=== PATIENT | male | born 1950 | race Caucasian/White ===

== ENCOUNTER 2022-04-11 10:50 | Outpatient (CLI) | payer OTHER, SELFPAY ==
--- NOTE | 2022-04-11 09:30 | DI.RAD_ITS ---
Exam(s) XR HAND RT COMPLETE EXAM: XR HAND RT COMPLETE CLINICAL HISTORY: right thumb pain. TECHNIQUE: 2D digital imaging was performed. COMPARISON: No exams were available for comparison FINDINGS: 3 views No evidence of fracture dislocation. No significant soft tissue densities. No osseous lesions nor e rosions. No radiopaque foreign body. IMPRESSION: No significant acute osseous findings. DATA REPOSITORY: RADIATION DOSE DELIVERED:
== END 2022-04-11 10:51 | disposition home or self-care (01) ==
LOC: DIORS 10:53
PROVIDERS: PCP Nurse Practitioner Acute Care; Referring Provider Nurse Practitioner Acute Care; Visit Provider Physician Assistant
DX: M79.644 Pain in right finger(s) (principal)
CPT/HCPCS: 73130

== ENCOUNTER 2023-01-28 08:19 | Day surgery (SDC) | payer OTHER, SELFPAY ==
[2023-01-28 08:31] VITALS: BP 126/89; PULSE 85; RESP 16; TEMP 36.1; O2SAT 97
[2023-01-28] MEDS: Lactated Ringers 1,000 ML 80 ML IV (09:09)
--- NOTE | 2023-01-28 09:18 | W.ANESPRE ---
General Info Date of Service Date Performed: 01/28/23 Height: 5 ft 11 in Weight: 104.2 kg Body Mass Index (BMI): 32.0 Surgical Procedure: Operation Date: 01/28/23 10:05 Proposed Procedure Side Surgeon risa Sung MD Meds Allergies and Home Medications Allergies Allergy/AdvReac Type Severity Reaction Status Date / Time niacin Allergy Unknown Verified 01/28/23 08:47 shrimp Allergy Anaphylaxsi Verified 01/28/23 08:47 s Home Medication Medication Instructions Recorded atenolol 25 mg tablet 25 mg PO DAILY 11/06/18 atorvastatin 40 mg tablet 40 mg PO DAILY 11/06/18 cholecalciferol (vitamin D3) 25 1,000 unit PO DAILY 11/06/18 mcg (1,000 unit) capsule epinephrine 0.3 mg/0.3 mL 11/06/18 injection, auto-injector (EpiPen) glipizide 10 mg tablet 10 mg PO DAILY 11/06/18 lisinopril 40 mg tablet 40 mg PO DAILY 11/06/18 omega 9-api-liw-fish oil 1,000 mg 1 cap PO DAILY 11/06/18 (120 mg-180 mg) capsule (Fish Oil) albuterol sulfate 90 mcg/actuation 2 inh inhalation Q6H PRN 02/06/22 breath activated powder inhaler cyanocobalamin (vitamin B-12) 1,000 mcg PO DAILY 02/06/22 1,000 mcg tablet empagliflozin 25 mg tablet 25 mg PO DAILY 02/06/22 famotidine 20 mg tablet 20 mg PO BID 02/06/22 metformin 1,000 mg tablet 1,000 mg PO BID 02/06/22 bisacodyl 5 mg tablet,delayed 5 mg PO ONCE #4 tabs 01/23/23 release (Dulcolax (bisacodyl)) clotrimazole 1 % topical cream 1 applic topical BID 01/23/23 polyethylene glycol 3350 17 17 g PO ONCE #238 grams 01/23/23 gram/dose oral powder sildenafil 50 mg tablet 50 mg PO DAILY PRN 01/23/23 Current Visit Medications: Current Medications Generic Name Dose Route Start Last Admin Trade Name Freq PRN Reason Stop Dose Admin Ringer's Solution 1,000 mls @ 80 mls/hr 01/28/23 06:00 12/05/23 09:09 IV 01/28/23 23:59 80 mls/hr INFUSION DEYSI Administration IV Miscellaneous Supplies 1 each 01/28/23 06:00 Iv Access IV 01/28/23 23:59 DIRECTED DEYSI Sodium Chloride 0 ml 01/28/23 06:00 Normal Saline Flush 10 Ml Syr IV 01/28/23 23:59 PRN PRN Sodium Chloride 0 ml 01/28/23 06:00 Normal Saline 10 Ml Vial IJ 01/28/23 23:59 DIRECTED PRN Sterile Water 0 ml 01/28/23 06:00 Water,Injection,Sterile 10 Ml Vial IJ 01/28/23 23:59 DIRECTED PRN PFSH Active Problems Active Problems: Problem Status Onset Code Plantar fasciitis M72.2 Thumb pain M79.646 Arthritis of carpometacarpal (CMC) joint of right thumb M18.11 Asthma J45.909 Erectile dysfunction N52.9 Subjective tinnitus H93.19 Asymmetrical sensorineural hearing loss H90.3 Chronic neck pain M54.2, G89.29 GERD (gastroesophageal reflux disease) K21.9 Medical History Medical History History of fracture of right hip Hx of hyperlipidemia HTN (hypertension) Diabetes Surgical History Surgical History History of testicular surgery History of fusion of cervical spine Tobacco Smoking/Tobacco Use Status: Never Alcohol Alcohol Intake: current Alcohol intake frequency: a few times a month Substance Use Substance use: Occasionally Substance use type: marijuana Vital Signs and Lab Results Vital Signs Most Recent Vital Signs in EMR: Most Recent Vital Signs Temp Pulse Resp BP Pulse Ox 36.1 C L 85 16 126/89 97 01/28/23 08:31 01/28/23 08:31 01/28/23 08:31 01/28/23 08:31 01/28/23 08:31 Point of Care Results Point of Care Results: Finger Stick Blood Glucose 158 01/28/23 09:00 Lab Results Blood Type / Crossmatch: No Data to Display Complete Blood Count: No Data to Display Complete Metabolic Panel: No Data to Display Liver Function Panel: No Data to Display Coagulation Panel: No Data to Display Cardiac Panel: No Data to Display Arterial Blood Gas: No Data to Display Venous Blood Gas: No Data to Display Pancreas Panel: No Data to Display Thyroid Panel: No Data to Display Infectious Disease: No Data to Display Blood Cultures: No Data to Display Toxicology Panel: No Data to Display Anesthesia Assessment and Plan Anesthesia History Personal History: No History of Anesthesia Complications Family History: No Family History of Anesthesia Complications Exercise Tolerance Exercise Tolerance: Metabolic Equivalents>4 Pertinent Negatives Pertinent Negatives: No Symptoms of GERD and No History of CVA/TIA Cardiac & Pulmonary Exam Cardiac Exam: Normal S1/S2 Heart Sounds Pulmonary Exam: Clear Bilateral Breath Sounds Implantable Cardiac Device Does patient have a Pacemaker or an ICD?: No Airway Exam Known Difficult Airway: No Mallampati Class: 2 Mouth Opening: Normal (> 3cm) Thyromental Distance: Greater than 3 cm Neck Range of Motion: Full ROM Neck Circumference: Normal Teeth Condition: Normal Dentition ASA Classification ASA Score: ASA 2 Emergency Case?: No NPO Status NPO Status: NPO Clears >2 hours, Solids >8 hours Anesthesia Plan Resuscitation Status: Full Code Anesthesia Technique: General Anesthesia Airway Planned: Natural Airway Monitors Used: Standard Monitors
--- NOTE | 2023-01-28 10:02 | BOWEL_PTH ---
PATIENT: Reddy Bullard LOC: [facility] U#:[id number] AGE/SX: 72/M ROOM: RE01/28/[address]: Rudolph Sung : 1950 BED: DIS: 01/28/2023 SPEC #: [id number] RECD: 01/28/23 12:22 STATUS: NEIL RE #: [id number] TRU: 01/28/23 10:[address]: Rudolph Sung DEPT: Surgical Specimen RECD BY: Aida Romero ENTERED: 01/28/23 12:23 SP TYPE: Bowel OTHR DR: FATMATA OBREGON Tissues: 1 - BIOPSY BOWEL 2 - BIOPSY BOWEL 3 - BIOPSY BOWEL 4 - BIOPSY BOWEL Procedures: GROSS AND MICRO LEVEL 4 Comments: [id number]
--- NOTE | 2023-01-28 10:20 | W.COLOREPORT ---
Date of service: 01/28/23 Time of Service: 10:20 Colonoscopy Report Procedure: PROCEDURES PERFORMED: 1. Colonoscopy with cold forceps polypectomy x2 2. Cold forceps polypectomy x 2 PREOPERATIVE DIAGNOSIS: Surveillance colonoscopy POSTOPERATIVE DIAGNOSIS: Colon polyps, hyperplastic rectal polyps, grade 2 internal hemorrhoids SURGEON: Matheus Sung MD INDICATION for procedure: The patient is a 72-year-old man due for surveillance colonoscopy. He self?reports his prior colonoscopies (at outside hospitals) were normal in the past. He does not have a family history of colon cancer. No significant intra-abdominal surgical history. He is not having any symptoms. FINDINGS: In the cecum a small 2-3 mm sessile polyp was removed with cold forceps technique. In the proximal transverse colon a 7-10 mm sessile polyp was removed with hot snare technique. In the sigmoid colon another 5-7 mm sessile polyp was removed with hot snare technique. In the distal sigmoid a 2-3 mm sessile, adenomatous?appearing polyp was removed with cold forceps technique. In the rectum there are multiple, flat, hyperplastic?appearing polyps. Also in the rectum, grade 2 internal hemorrhoids were noted on retroflexion. SURVEILLANCE interval/FOLLOW-UP: 3 years EBL: Minimal COMPLICATIONS: None QUALITY of prep: Excellent Procedure in detail: The patient gave written consent and was in agreement with the indications, the potential risks as well as the benefits of the procedure. He was taken to the endoscopy suite and laid in the left lateral decubitus position. A timeout was performed and anesthesia was administered which was tolerated well. I started the procedure. Digital rectal and visual examination was performed and grossly within normal limits. A well?lubricated flexible colonoscope was then introduced and passed without any notable difficulty all the way to the cecum identified by the ileocecal valve and the appendiceal orifice. The scope was then slowly withdrawn with the above?noted findings. The patient tolerated the procedure well and was taken to the PACU in hemodynamically stable condition.
[2023-01-28 10:23] VITALS: BP 142/76; PULSE 70; RESP 16; TEMP 35.7; O2SAT 97
[2023-01-28 10:24] VITALS: BMI 32.0
--- NOTE | 2023-01-28 10:26 | W.PM.DSUDISC ---
Date of service: 01/28/23 Time of Service: 10:26 Discharge Plan Disposition Patient Disposition: Home Condition: Good Discharge Details Attending Provider: Rudolph Sung Primary Care Provider: FATMATA OBREGON Home Meds and New Rx's Prescriptions: No Action albuterol sulfate 90 mcg/actuation aerosol powdr breath activated 2 inh inhalation Q6H PRN Patient Comments: 01/28/23 pt reports has not used for months cyanocobalamin (vitamin B-12) 1,000 mcg tablet 1,000 mcg PO DAILY empagliflozin 25 mg tablet 25 mg PO DAILY famotidine 20 mg tablet 20 mg PO BID metformin 1,000 mg tablet 1,000 mg PO BID bisacodyl [Dulcolax (bisacodyl)] 5 mg tablet,delayed release (DR/EC) 5 mg PO ONCE Qty: 4 0RF Rx Instructions: Take per colonoscopy instructions provided by ordering providers office polyethylene glycol 3350 17 gram/dose powder 17 g PO ONCE Qty: 238 0RF Rx Instructions: Take per colonoscopy instructions provided by ordering providers office clotrimazole 1 % cream 1 applic topical BID sildenafil 50 mg tablet 50 mg PO DAILY PRN Rx Instructions: administer 30 minutes to 4 hours before activity glipizide 10 mg Tablet 10 mg PO DAILY atorvastatin 40 mg Tablet 40 mg PO DAILY atenolol 25 mg Tablet 25 mg PO DAILY epinephrine [EpiPen] 0.3 mg/0.3 mL Auto-Injector lisinopril 40 mg Tablet 40 mg PO DAILY cholecalciferol (vitamin D3) 1,000 unit Capsule 1,000 unit PO DAILY omega 4-dwl-tzc-fish oil [Fish Oil] 1,000 mg (120 mg-180 mg) Capsule 1 cap PO DAILY Discharge Instructions Additional Instructions: FINDINGS: Multiple colon polyps were found and removed today. This is why we do these procedures. They were completely removed and you do not need to worry about them. Because of finding this many (4+) we recommend repeating a colonoscopy in 3 years. Also found today was benign hemorrhoid disease. This is extremely common, benign and nothing needs to be done about it as long as you are not having symptoms from it. Stand Alone Forms: Anesthesia Discharge Inst., Leighton Joseph ([facility]) Activity:: Activity as Tolerated Diet:: As Tolerated Discharge Orders Discharge Orders: Discharge Order (Routine); Ordered 01/28/23 Ordered By: Rudolph Sung
[2023-01-28 10:55] VITALS: BP 137/80; PULSE 65; RESP 16; TEMP 36.1; O2SAT 98
--- NOTE | 2023-01-29 13:35 | W.ANESPOSTOP ---
Postoperative Evaluation Date, Time and Location Date Performed: 01/29/23 Time Performed: : Patient Location: Day [facility] Unit Vital Signs Most Recent Imported Vital Signs: Most Recent Vital Signs Temp Pulse Resp BP Pulse Ox 36.1 C L 65 16 137/80 98 01/28/23 10:55 01/28/23 10:55 01/28/23 10:55 01/28/23 10:55 01/28/23 10:55 Pain Score Most Recent Pain Score: Most Recent Pain Score Pain Level 0 01/28/23 10:55 Assessment Mental Status: Awake (Alert & Oriented to Patient Baseline) Airway and Respiratory Function: Patent airway with normal (patient baseline) respiratory exam Cardiovascular Function: Hemodynamically Stable Hydration Status: Adequately Hydrated Nausea & Vomiting: No Nausea or Vomiting Pain: Pt. Denies Any Pain Peripheral Nerve Block: Patient did not receive a nerve block
== END 2023-01-28 11:15 | disposition home or self-care (01) ==
PROVIDERS: PCP Nurse Practitioner Acute Care; Visit Provider Student in an Organized Health Care Education/Training Program
PROC: 0DJD8ZZ Inspection of Lower Intestinal Tract, Via Natural or Artificial Opening Endoscopic (ICD-10-PCS; CPT 45378; principal; 2023-01-28 10:00)
DX: Z12.11 Encounter for screening for malignant neoplasm of colon (principal); D12.0 Benign neoplasm of cecum; K64.1 Second degree hemorrhoids; K21.9 Gastro-esophageal reflux disease without esophagitis; D12.3 Benign neoplasm of transverse colon; D12.5 Benign neoplasm of sigmoid colon
CPT/HCPCS: 45385; 45380; 00123; 88305

== ENCOUNTER 2024-04-25 10:58 | Emergency (ER) | payer OTHER, SELFPAY ==
[2024-04-25] VITALS (36 sets, daily range): BP systolic 89–167; BP diastolic 35–121; PULSE 93–133; RESP 16–24; TEMP 36.2–39; O2SAT 89–97
--- NOTE | 2024-04-25 11:21 | ED.GENADUL_ITS ---
Discharge Plan Disposition Patient Disposition: Home Discharge Details Clinical Impression: Influenza A Primary Care Provider: FATMATA OBREGON ED Provider: Werner Lacy Home Meds and New Rx's Prescriptions: New promethazine-DM 6.25-15 mg/5 mL syrup 5 ml PO Q6H PRNQty: 118 0RF cetirizine 10 mg tablet 10 mg PO DAILY PRNQty: 7 0RF benzonatate 100 mg capsule 100 mg PO BID PRNQty: 7 0RF fluticasone propionate [Flonase Allergy Relief] 50 mcg/actuation spray,suspension 1 spray intranasal DAILY Qty: 16 0RF Rx Instructions: administer into each nostril Continued albuterol sulfate 90 mcg/actuation aerosol powdr breath activated 2 inh inhalation Q6H PRN Patient Comments: 01/28/23 pt reports has not used for months cyanocobalamin (vitamin B-12) 1,000 mcg tablet 1,000 mcg PO DAILY empagliflozin 25 mg tablet 25 mg PO DAILY famotidine 20 mg tablet 20 mg PO BID metformin 1,000 mg tablet 1,000 mg PO BID clotrimazole 1 % cream 1 applic topical BID sildenafil 50 mg tablet 50 mg PO DAILY PRN Rx Instructions: administer 30 minutes to 4 hours before activity glipizide 10 mg Tablet 10 mg PO DAILY atorvastatin 40 mg Tablet 40 mg PO DAILY atenolol 25 mg Tablet 25 mg PO DAILY epinephrine [EpiPen] 0.3 mg/0.3 mL Auto-Injector lisinopril 40 mg Tablet 40 mg PO DAILY cholecalciferol (vitamin D3) 1,000 unit Capsule 1,000 unit PO DAILY omega 7-eco-men-fish oil [Fish Oil] 1,000 mg (120 mg-180 mg) Capsule 1 cap PO DAILY Discharge Instructions Instructions: Flu Additional Instructions: You are seen in the emergency department for your cough and found to be positive for influenza. Please make sure you continue eating and drinking. If you do not urinate at least once every 8 hours while awake please return to the emergency department. Otherwise please take these prescriptions as directed to treat your symptoms. If you develop worsening shortness of breath or if you pass out please return to the emergency department. HPI General Date/Time Provider Initiated Documentation: 04/25/24 11:21 . HPI Narrative: MDM This is an afebrile tachycardic but not hypoxic nor hypotensive 73-year-old male with cough URI symptoms likely secondary to viral versus bacterial pneumonia in the setting of abnormal left-sided breath sounds. No pain out of proportion to suggest necrotizing soft tissue infection. No significant posterior oropharynx erythema to suggest strep pharyngitis. Handling secretions so doubt epiglottitis. Nontoxic so doubt bacterial tracheitis. Uvula midline making my suspicion low for peritonsillar abscess. No black or bloody stools to suggest GI bleed. Given decreased p.o. dry mucous membranes will treat with 500 cc of crystalloid and reassess following labs and viral swab. I considered PE however in the setting of the patient's cough I did not feel that he required a D-dimer as I felt that there was chance of false positive. He has a soft nontender abdomen so not suspicious for diverticulitis despite diarrhea. No chest pain to suggest ACS. Patient nonalcoholic to suggest increased risk for aspiration. He does not have significant wheezes so we will defer albuterol and steroids at this point in time. I considered sepsis however the patient's heart rate improved during my assessment. Given his viral symptoms I did not treat empirically for sepsis with IV antibiotics monitoring blood cultures. 4 PM Patient swabbed positive for influenza A. He tolerated p.o. in the ED. His tachycardia resolved. He did have a fever for which he received acetaminophen. We discussed return indications including difficulty breathing inability tolerate p.o. or any nausea or vomiting. He understood his return indications and was discharged with empiric trial of expectant outpatient management. HPI This is a 73-year-old male with history of reactive airway disease right emergency department via private vehicle in the setting of cough and shortness of breath for the past approximately 1 week. His is sick with similar symptoms. He has been eating less at home. He denies history of tobacco and ethanol. He denies fevers and vomiting. He is in left upper quadrant pain when he coughs. He denies chest pain dysuria and frequency. He reports his symptoms have been ongoing for 1 week. Exam General: Elderly-appearing in no acute distress speaking in complete sentences. Head: Normocephalic, atraumatic. Eye: Extraocular eye movements intact. No conjunctival injection. No scleral icterus. Ear, nose, mouth, throat: Grossly normal inspection. Normal voice, handling secretions normally. Neck: Trachea midline. Cardiovascular: Well-perfused distal extremities. Rapid regular rate Respiratory: Nonlabored respiration. Coarse left-sided breath sounds. Gastrointestinal: Nondistended abdomen. Musculoskeletal: No edema. Moving all 4 extremities spontaneously. Skin: Normal for age and race, grossly normal temperature and turgor. No acute rash. Neurologic: Alert and appropriate, no apparent acute deficits. Psychiatric: Mood and manner are appropriate. Grooming and personal hygiene are appropriate. Related Data Home Medications ?Medication ?Instructions ?Recorded ?Confirmed atenolol 25 mg tablet 25 mg PO DAILY 11/06/18 04/25/24 atorvastatin 40 mg tablet 40 mg PO DAILY 11/06/18 04/25/24 cholecalciferol (vitamin D3) 25 1,000 unit PO DAILY 11/06/18 04/25/24 mcg (1,000 unit) capsule epinephrine 0.3 mg/0.3 mL 11/06/18 01/24/23 injection, auto-injector (EpiPen) glipizide 10 mg tablet 10 mg PO DAILY 11/06/18 04/25/24 lisinopril 40 mg tablet 40 mg PO DAILY 11/06/18 04/25/24 omega 0-gpa-gnq-fish oil 1,000 mg 1 cap PO DAILY 11/06/18 04/25/24 (120 mg-180 mg) capsule (Fish Oil) albuterol sulfate 90 mcg/actuation 2 inh inhalation Q6H PRN 02/06/22 04/25/24 breath activated powder inhaler cyanocobalamin (vitamin B-12) 1,000 mcg PO DAILY 02/06/22 04/25/24 1,000 mcg tablet empagliflozin 25 mg tablet 25 mg PO DAILY 02/06/22 04/25/24 famotidine 20 mg tablet 20 mg PO BID 02/06/22 04/25/24 metformin 1,000 mg tablet 1,000 mg PO BID 02/06/22 04/25/24 clotrimazole 1 % topical cream 1 applic topical BID 01/23/23 04/25/24 sildenafil 50 mg tablet 50 mg PO DAILY PRN 01/23/23 04/25/24 benzonatate 100 mg capsule 100 mg PO BID PRN #7 caps 04/25/24 cetirizine 10 mg tablet 10 mg PO DAILY PRN #7 tabs 04/25/24 fluticasone propionate 50 1 spray intranasal DAILY #16 grams 04/25/24 mcg/actuation nasal spray,suspension (Flonase Allergy Relief) promethazine-DM 6.25 mg-15 mg/5 mL 5 ml PO Q6H PRN #118 mL 04/25/24 oral syrup Previous Rx's ?Medication ?Instructions ?Recorded benzonatate 100 mg capsule 100 mg PO BID PRN #7 caps 04/25/24 cetirizine 10 mg tablet 10 mg PO DAILY PRN #7 tabs 04/25/24 fluticasone propionate 50 1 spray intranasal DAILY #16 grams 04/25/24 mcg/actuation nasal spray,suspension (Flonase Allergy Relief) promethazine-DM 6.25 mg-15 mg/5 mL 5 ml PO Q6H PRN #118 mL 04/25/24 oral syrup Allergies Allergy/AdvReac Type Severity Reaction Status Date / Time niacin Allergy Unknown Unknown Verified 04/25/24 11:05 shrimp Allergy Anaphylaxsi Verified 04/25/24 11:05 s General Stated Complaint: GenMedical CHASIDY: 3 Course Vital Signs Vital signs: Vital Signs Temperature 36.2 C L 04/25/24 11:02 Pulse 122 H 04/25/24 11:02 Respiratory Rate 24 04/25/24 11:02 Blood Pressure 140/83 04/25/24 11:02 Pulse Oximetry 97 04/25/24 11:02 Temperature 36.2 C L 04/25/24 11:06 Pulse 122 H 04/25/24 11:06 Respiratory Rate 24 04/25/24 11:06 Blood Pressure 140/83 04/25/24 11:06 Pulse Oximetry 97 04/25/24 11:06 Medical Decision Making Quality:SDOH Health Related Social Needs: No Data to Display PFSH All Active Problems (Updated 04/25/24 @ 13:17 by Werner Lacy MD) Influenza A (Acute) Tubular adenoma of colon (Acute ~01/28/23) X4 Plantar fasciitis (Acute) Thumb pain (Acute) Arthritis of carpometacarpal (CMC) joint of right thumb (Acute) Asthma (Chronic) Erectile dysfunction (Acute) Subjective tinnitus (Acute) Asymmetrical sensorineural hearing loss (Acute) Chronic neck pain (Acute) GERD (gastroesophageal reflux disease) (Chronic) Medical History (Updated 04/25/24 @ 13:17 by Werner Lacy MD) History of fracture of right hip Hx of hyperlipidemia HTN (hypertension) Diabetes Surgical History (Updated 01/28/23 @ 13:19 by Mag Nichole) History of colonoscopy (~01/2023) path sent--3 year History of testicular surgery History of fusion of cervical spine Social History (Updated 01/23/23 @ 14:30 by Estefany Banks RN, RN) Smoking/Tobacco Use Status: Never Smoking risk assessment performed?: Yes Alcohol Intake: current Alcohol Intake frequency: a few times a month Drug use: Occasionally Substance use type: marijuana Household members: spouse Housing: house current occupation: computers What is your relationship status?: Panel score (0-1 are the most socially isolated patients): 1 Do you feel safe at home: Yes Do you feel safe in your relationship?: Yes
[2024-04-25 11:56] LABS: COVID-19 PCR Negative (Negative); Influenza A PCR Positive (Negative); Influenza B PCR Negative (Negative); RSV PCR Negative (Negative); Source Nasopharynx
[2024-04-25] MEDS: Normal Saline 500 ML 1000 ML IV (12:00)
--- NOTE | 2024-04-25 12:02 | DI.RAD_ITS ---
Exam(s) XR CHEST 2V PA LATERAL EXAM: XR CHEST 2V PA LATERAL CLINICAL HISTORY: Cough shortness of breath TECHNIQUE: 2D digital imaging was performed. Two views. COMPARISON: No exams were available for comparison FINDINGS: HEART: Normal size. Aorta: Not dilated. PULMONARY VASCULATURE: Normal. MEDIASTINUM: Unremarkable. LUNGS: Clear. PLEURAL SPACE: No pleural effusion or pneumothorax. BONE:Unremarkable for age. SOFT TISSUES: Unremarkable. IMPRESSION: No acute abnormality. DATA REPOSITORY: RADIATION DOSE DELIVERED:
[2024-04-25 12:03] LABS: Abs Immature Grans 0.05 10^3/uL (0.0-0.06); Absolute Basophil Count 0.04 10^3/uL (0.0-0.2); Absolute Eosinophil Count 0.08 10^3/uL (0.0-0.7); Absolute Monocyte Count 0.34 10^3/uL (0.1-0.8); BE (Venous) 1 mmol/L (-2-3); Basophils % 0.3 %; Eosinophils % 0.7 %; HCO3 (Venous) 26 mmol/L (23-28); HCT 46.4 % (40.0-50.0); HGB 15.7 g/dL (13.5-17.5); Immature Grans % 0.4 %; Lymphocytes % 4.7 %; MCH 31.7 pg (27.0-33.0); MCHC 33.8 % (32.0-36.0); MCV 94 fL (80-95); MPV 8.9 fL (8.0-11.0); Monocytes % 2.8 %; Neutrophils % 91.1 %; O2 Sat (Venous) 53 %; Platelet Count 136 10^3/uL (130-400); RBC 4.95 10^6/uL (4.36-5.78); RDW 12.3 % (11.8-14.1); RDW-SD 42.4 fL; TCO2 (Venous) 23 mmol/L (24-29); WBC 12.01 10^3/uL (4.4-10.8); pCO2 (Venous) 45 mmHg (41-51); pH (Venous) 7.37 (7.31-7.41); pO2 (Venous) 30 mmHg
[2024-04-25 12:05] LABS: Absolute Lymphocyte Count 0.56 10^3/uL (1.2-3.4); Absolute Neutrophil Count 10.94 10^3/uL (1.2-6.7)
[2024-04-25 12:26] LABS: ALT 25 U/L (16-63); AST 31 U/L (15-37); Albumin 3.4 g/dL (3.4-5.0); Alkaline Phosphatase 80 U/L (46-116); Anion Gap 8.2 mmol/L (3-11); BUN 15 mg/dL (7-18); Bilirubin, Total 1.44 mg/dL (0.2-1.0); CO2 26.8 mmol/L (21.0-32.0); CREATININE 1.1 mg/dL (0.70-1.30); Calcium 9.1 mg/dL (8.5-10.1); Chloride 102 mmol/L (98-107); Creatine Kinase 218 U/L (39-308); Estimated GFR 70.88 (mL/min/1.73m2); Glucose 211 mg/dL (74-106); Potassium 4.1 mmol/L (3.5-5.1); Sodium 137 mmol/L (136-145); Total Protein 7.5 g/dL (6.4-8.2)
--- NOTE | 2024-04-25 12:27 | DI.VRAD_ITS ---
PROCEDURE INFORMATION: Exam: XR Chest Exam date and time: 04/25/2024 11:50 AM Age: 73 years old Clinical indication: Cough and shortness of breath; Cough, shortness of breath TECHNIQUE: Imaging protocol: Radiologic exam of the chest. Views: 2 views. COMPARISON: CT CHEST/ABD/PEL WO 11/06/2018 4:03 PM FINDINGS: Lungs: Unremarkable. No consolidation. Pleural spaces: Unremarkable. No pleural effusion. No pneumothorax. Heart/Mediastinum: Unremarkable. No cardiomegaly. Bones/joints: Severe degenerative disease of bilateral acromioclavicular joints. There are moderate degenerative changes of the glenohumeral joints. The thoracic spine demonstrates mild degenerative changes at multiple levels. IMPRESSION: No acute cardiopulmonary process. Dictated and Authenticated by: Tk Curtis MD. Orderin Bambi Caldera MD
[2024-04-25] MEDS: Ibuprofen 200 MG TAB PO (13:49)
[2024-04-25] MEDS: Benzonatate 100 MG CAP PO (13:50)
[2024-04-25] MEDS: Acetaminophen 500 MG TAB 1000 MG PO (13:50)
== END 2024-04-25 16:03 | disposition home or self-care (01) ==
PROVIDERS: Emergency Provider Emergency Medicine; PCP Nurse Practitioner Acute Care
DX: J10.1 Influenza due to other identified influenza virus with other respiratory manifestations (principal); R50.9 Fever, unspecified; R05.1 Acute cough; R10.11 Right upper quadrant pain
CPT/HCPCS: 80053; 82550; 82805; 87637; 99284; 71046; 85025

== ENCOUNTER 2024-04-27 13:06 | Inpatient (IN) | payer OTHER, SELFPAY ==
[2024-04-27] VITALS (106 sets, daily range): BP systolic 36–247; BP diastolic 12–211; PULSE 46–186; RESP 4–38; TEMP 36–36.4; O2SAT 3–100
--- NOTE | 2024-04-27 13:15 | RT.EKG_ITS ---
APPROVED REPORT Exam: Resting ECG Reason for Exam: Chest Pain/ SOB Patient Location: E HR:145 bpm ECG Measurements Heart Rate 145 AXIS ME 110 P 2 QRSd 93 QRS 57 QT 320 T 118 QTc 496 Conclusion Sinus tachycardia...rate> 99 Atrial premature complex...SV complex w/ short R-R interval
[2024-04-27] MEDS: Lidocaine 2% Jelly 11 ML SYR (13:40)
--- NOTE | 2024-04-27 13:45 | ED.GENADUL_ITS ---
Discharge Plan Disposition Patient Disposition: Admit to [facility] Condition: Critical Discharge Details Clinical Impression: Septic shock, SHALONDA (acute kidney injury), Acidosis, lactic, Pneumonia, Hypovolemia Admit Date/Time: 04/27/24 21:42 Admit Provider: Tristian Ritter Attending Provider: Tristian Ritter Primary Care Provider: FATMATA OBREGON ED Provider: Aramis Linda Discharge Data Discharge Physician: Aramis Linda [facility] <Luke Garcia MD - Last Filed: 04/28/24 07:05> General Mode of arrival: wheelchair . Date/Time Provider Initiated Documentation: 04/27/24 13:07 . Limitations to Documentation: no limitations . Information obtained by: patient . History of Present Illness 73 year old M presents to the emergency department with the chief complaint of fatigue, dyspnea, diarrhea, described as moderate, Patient started experiencing this week(s) (1) and it has been constant. No relieving factors improve symptom(s), No exacerbating factors reported . Patient notes cough, nausea/vomiting and shortness of breath; denies chest pain. Patient did receive the following treatments prior to arrival, none Related Data Home Medications ?Medication ?Instructions ?Recorded ?Confirmed atenolol 25 mg tablet 25 mg PO DAILY 11/06/18 04/27/24 atorvastatin 40 mg tablet 40 mg PO DAILY 11/06/18 04/27/24 cholecalciferol (vitamin D3) 25 1,000 unit PO DAILY 11/06/18 04/27/24 mcg (1,000 unit) capsule epinephrine 0.3 mg/0.3 mL 11/06/18 01/24/23 injection, auto-injector (EpiPen) glipizide 10 mg tablet 10 mg PO DAILY 11/06/18 04/27/24 lisinopril 40 mg tablet 40 mg PO DAILY 11/06/18 04/27/24 omega 5-cgc-hwl-fish oil 1,000 mg 1 cap PO DAILY 11/06/18 04/27/24 (120 mg-180 mg) capsule (Fish Oil) albuterol sulfate 90 mcg/actuation 2 inh inhalation Q6H PRN 02/06/22 04/27/24 breath activated powder inhaler cyanocobalamin (vitamin B-12) 1,000 mcg PO DAILY 02/06/22 04/27/24 1,000 mcg tablet empagliflozin 25 mg tablet 25 mg PO DAILY 02/06/22 04/27/24 famotidine 20 mg tablet 20 mg PO BID 02/06/22 04/27/24 metformin 1,000 mg tablet 1,000 mg PO BID 02/06/22 04/27/24 clotrimazole 1 % topical cream 1 applic topical BID 01/23/23 04/27/24 sildenafil 50 mg tablet 50 mg PO DAILY PRN 01/23/23 04/27/24 benzonatate 100 mg capsule 100 mg PO BID PRN #7 caps 04/25/24 04/27/24 cetirizine 10 mg tablet 10 mg PO DAILY PRN #7 tabs 04/25/24 04/27/24 fluticasone propionate 50 1 spray intranasal DAILY #16 grams 04/25/24 04/27/24 mcg/actuation nasal spray,suspension (Flonase Allergy Relief) promethazine-DM 6.25 mg-15 mg/5 mL 5 ml PO Q6H PRN #118 mL 04/25/24 04/27/24 oral syrup Previous Rx's ?Medication ?Instructions ?Recorded benzonatate 100 mg capsule 100 mg PO BID PRN #7 caps 04/25/24 cetirizine 10 mg tablet 10 mg PO DAILY PRN #7 tabs 04/25/24 fluticasone propionate 50 1 spray intranasal DAILY #16 grams 04/25/24 mcg/actuation nasal spray,suspension (Flonase Allergy Relief) promethazine-DM 6.25 mg-15 mg/5 mL 5 ml PO Q6H PRN #118 mL 04/25/24 oral syrup Allergies Allergy/AdvReac Type Severity Reaction Status Date / Time niacin Allergy Unknown Unknown Verified 04/27/24 14:31 shrimp Allergy Anaphylaxsi Verified 04/27/24 14:31 s General Stated Complaint: RespSymp CHASIDY: 2 <Aramis Linda MD - Last Filed: 04/27/24 21:33> HPI Narrative: Patient who unfortunately was accepted by the hospitalist for admission but when the hospitalist came down he said he will not take care of the patient because the patient was to unstable. This is a patient to keep to the emergency department after he had flulike symptoms a week ago but this is positive for the flu and the same today with cough productive sputum with high fever and was found out to have lactic acidosis. He was hypotensive and very tachycardic and spiked a temperature. Blood cultures were drawn and initially was thought that he was lactacidosis with new metformin but on my assessment I think the patient has poor lactic acidosis due to severe hypovolemia hypotension and sepsis and septic shock. X-ray shows a pneumonia in the left middle lobe and a CAT scan confirms it which looks like a left lateral blow to infiltrate with probably some necrotic areas which might be staph pneumonia. Review of Systems <Luke Garcia MD - Last Filed: 04/28/24 07:05> All systems reviewed & are unremarkable except as noted in HPI and below Constitutional Constitutional: Reports chills, Denies fever(s) and Reports weakness Cardiovascular Cardiovascular: Denies chest pain and Reports dyspnea Respiratory Respiratory: Reports cough and Reports dyspnea Gastrointestinal Gastrointestinal: Reports abdominal pain, Reports diarrhea, Reports nausea and Denies vomiting Neurologic Neurologic: Reports weakness <Aramis Linda MD - Last Filed: 04/27/24 21:33> Narrative: As per Dr. Garcia's note Exam <Luke Garcia MD - Last Filed: 04/28/24 07:05> Const Orientation: alert [facility] Head: normal to inspection Ears: external ears normal General nose exam: external nose normal Mouth: moist mucous membranes Eyes General: appearance normal, both eyes and all related structures Neck Neck: normal visual inspection Resp Auscultation: rhonchi and wheezes Cardio Jugular venous pressure: no JVD Rate: tachycardic GI Palpation: soft and tender Skin General skin exam: no rashes or lesions noted Neuro General: patient alert and patient oriented x3 Extrem General: normal to inspection Psych Mental Status: mental status grossly normal <Aramis Linda MD - Last Filed: 04/27/24 21:33> Narrative Exam Narrative: Exam; vitals signs as reported patient with a heart rate of 143 BP about 70/46 febrile Constitutional; In no acute distress, febrile General: cooperative, healthy appearing, comfortable and no acute distress HEENT: Head: normal to inspection, no palpable skull fracture and normocephalic atraumatic Eyes: : appearance normal, both eyes and all related structures EOM intact bilaterally Pupils: PERRL : conjunctiva normal Direct ophthalmoscopy: normal light reflex, normal conjunctiva, normal visual acuity Ears: Normal TM, normal external canal Nose: normal no rhinorreha Neck no JVD, supple non tender Neck: normal visual inspection, full ROM and no lymphadenopathy Chest: normal inspection of the chest Respiratory : normal respiratory effort and able to speak in complete sentences no wheezing rales or rhonchi left lung field Cardio Rate: Tachycardic regular rate, rhythm: regular rhythm normal heart sounds S1 and S2 no murmurs, gallops, or rubs Course <Luke Garcia MD - Last Filed: 04/28/24 07:05> Vital Signs Vital signs: Vital Signs Temperature 36.4 C 04/27/24 13:24 Pulse 143 H 04/27/24 13:24 Respiratory Rate 30 H 04/27/24 13:24 Blood Pressure 77/57 L 04/27/24 13:24 Pulse Oximetry 90 L 04/27/24 13:24 Temperature 36.4 C 04/27/24 13:27 Temperature Source Oral 04/27/24 13:27 Pulse 143 H 04/27/24 13:27 Respiratory Rate 30 H 04/27/24 13:27 Blood Pressure 77/57 L 04/27/24 13:27 Blood Pressure Position Sitting 04/27/24 13:27 Pulse Oximetry 90 L 04/27/24 13:27 Oxygen Delivery Method Room Air 04/27/24 13:27 Oxygen Flow Rate 0 04/27/24 13:27 Lab/Test Results Lab/Test Results: 04/27/24 13:29 Blood Blood Culture - Pending 04/27/24 13:29 Blood Blood Culture - Pending <Aramis Linda MD - Last Filed: 04/27/24 21:33> Patient who was to be admitted by the hospitalist but the hospitalist came down and found that he was too sick to be taken upstairs so he gave me the responsibility for me to take care of the patient. I did a huiiv-ye-ahaz ultrasound which shows a very hyperdynamic heart with a very flat IVC and a patient who most likely has sepsis. IV fluids with dense and reinitiated with immediate good response to hydration. As per request of the hospitalist and the nurse I will put a IJ right central line to continue fluid hydration. I will order also vancomycin IV for most like this patient might have staph pneumonia Reevaluation(s) Time: 19:34 Reevaluation: After IV fluid hydration his blood pressure was 110/70 his heart rate is down to 130 IJ was placed at the right internal jugular vein without complications using the ultrasound as guidance and a bolus of fluids were instilled showing bubbles in the RV. There is normal lung sliding on the right side. Patient will continue IV fluid hydration he is responsive to fluids and we will decrease his fluids and taper down his pressors for he needs to be tanked up with IV fluids before pressors which is making heart very tachycardic antibiotics were given as soon as the patient is stable I will call the hospitalist to admit to the ICU Time: 21:18 Reevaluation #2: Patient improving he had already diuresed about 200 cc. Blood pressure right now is 103/75 heart rate of 130 which is lower than what is when I started to care for this patient patient also defervesced to a fever now and temperature of 98.5 degrees F speaking full sentences his oxygen saturation is 98. At this time I discussed it with Dr. Tristian Hanna the hospitalist who now has agreed to admit the patient to the ICU he will continue IV fluids and taper the pressors as we continue give him antibiotics and treating for which most likely is a staph pneumonia. Procedure <Aramis Linda MD - Last Filed: 04/27/24 21:33> Central Line Placement Date of Procedure: 04/27/24 Time of Procedure: 18:50 Provider that performed the procedure: Aramis Linda Indication: Central venous access Patient Consented: Verbally and Written Standard Time Out Performed: Yes Sterility: Sterile Local Anesthetic: Lidocaine 2% Amount of anesthetic used(mL): 5 Laterality: Right Insertion Site: Internal Jugular (IJ) Central Line Type: Triple Lumen Catheter Insertion Procedure: 1% Lidocaine to skin and subcutaneous tissue with 25g needle, Vessel accessed with needle, Vessel accessed with catheter over needle, catheter advanced, Guidewire placed with ease, Dermatotomy (skin kelli) made with scalpel, Dilator placed without resistance, Introducer/Catheter placed without resistance, Guidewire removed and Claves placed, blood withdrawn, ports flushed and clamped Ultrasound: Used/Image Saved Post Procedure: good blood return, all ports aspirated, flushed, capped and sutured in place with 2-0 silk Post Procedure X-Ray: tip of catheter in good position Dressing: Tegaderm applied and BioPatch applied Procedure Tolerated: No Complications Procedure Outcome: Successful Procedure Description/Note: Bubble study shows bubbles in the RV post procedure and right lung sliding is normal as usual. Medical Decision Making <Luke Garcia MD - Last Filed: 04/28/24 07:05> 72-year-old male with a history of asthma, recently diagnosed with full and a set him appropriate seen in the ER for respiratory symptoms comes in with continued cough and shortness of breath and also has nausea vomiting diarrhea and has been feeling acutely ill liquids down. He states very sensitive and he feels he has started on some metoprolol as his blood pressure okay seeing 1 he only he feels like he is slightly bad as it was normal was 2 days ago lightheaded. He is noted to be hypotensive with systolics in the 70s on arrival tachycardic to 140s. He is dry mucous membranes, he states he has had some upper abdominal pain especially when he vomits and denies any chest pain. He is on care at the bases bilaterally and apical wheezing. No JVD. No calf tenderness. Abdomen is soft nondistended but is tender for left primary quadrant. Is noted to have room air sats around 90%. Given his constellation of symptoms we will obtain proper including CBC, CMP, procalcitonin, lactate, troponin send blood cultures, will treat his symptoms with IV fluids, for the diarrhea will check for C. difficile and fecal bacterial pathogens, will obtain a CTA of the chest to evaluate for PE versus infiltrates and also given his abdominal pain and diarrhea obtain CT abdomen pelvis to evaluate for entities such as SBO or colitis. Patient's labs show severely elevated lactate of 11, no leukocytosis, procalcitonin is elevated so ordered a dose of Zosyn. pH of 7.1, he also has noted to be in acute renal failure with a creatinine of 4 GFR 14 which is severely diminished from when he was here few days ago with normal renal function. Elevated anion gap which could be from the lactic acidosis but glucose is also over 300, question possible dka. ct pending ct shows left sided pneumonia with parapneumonic effusion, no other significant findings in the chest/abd/pelvis. His bp is now over 140 systolic, HR persistently around 150 bpm and hasn't taken his atenolol today, question underlying afib vs flutter will trial iv dose of metoprolol EKG and ABG is improved to 7.3, likely remains well and, if needed follow-up recurrent hypotension labs 50s despite IV fluids and IV Levophed started. I suspect he could have metformin associated lactic acidosis. will discuss with hospitalist about admission to icu for supportive care and IV antibiotics patient taken off cpap and appears much improved when he first arrived. HE is still mildly tachypneic but being off the cpap allowed levophed to be tirated down from 10 to 5mcg/min. Differential Diagnosis Differential Diagnosis: Influenza A, dehydration, CKD, colitis, PE Medical Records Medical records reviewed: Yes I reviewed the patient's medical records. Lab Data Lab results reviewed: Yes I reviewed the patient's lab results. ECG Data Attestation: I personally reviewed and interpreted this ECG (s) as follows: Prior ECG tracings: not available for review Interpretation: Sinus tachycardia, rate 45, QTc 496, no STEMI Quality:SDOH Health Related Social Needs: 2 Health related social needs education (Z55.6) Critical Care Time <Aramis Linda MD - Last Filed: 04/27/24 21:33> Critical Care Time Critical Care Time: Yes Total Critical Care Time: 85 Attestation: Critical care time aside from procedure time due to pending collapse of the cardiovascular system due to septic shock [facility] <Luke Garcia MD - Last Filed: 04/28/24 07:05> All Active Problems (Updated 04/28/24 @ 06:42 by Tristian Ritter) Hypovolemia (Acute) Septic shock (Acute) Hypomagnesemia (Acute) Type 2 diabetes mellitus (Chronic) Hyperlipidemia (Chronic) Septic shock due to undetermined organism (Acute) Pneumonia (Acute) Acidosis, lactic (Acute) SHALONDA (acute kidney injury) (Acute) Influenza A (Acute) Tubular adenoma of colon (Acute ~01/28/23) X4 Plantar fasciitis (Acute) Thumb pain (Acute) Arthritis of carpometacarpal (CMC) joint of right thumb (Acute) Asthma (Chronic) Erectile dysfunction (Acute) Subjective tinnitus (Acute) Asymmetrical sensorineural hearing loss (Acute) Chronic neck pain (Acute) GERD (gastroesophageal reflux disease) (Chronic) Medical History History of fracture of right hip Hx of hyperlipidemia HTN (hypertension) Diabetes Surgical History History of colonoscopy (~01/2023) path sent--3 year History of testicular surgery History of fusion of cervical spine Social History Smoking/Tobacco Use Status: Never Smoking risk assessment performed?: Yes Alcohol Intake: current Alcohol Intake frequency: a few times a month Drug use: Occasionally Substance use type: marijuana Household members: spouse Housing: house current occupation: computers What is your relationship status?: Panel score (0-1 are the most socially isolated patients): 1 Do you feel safe at home: Yes Do you feel safe in your relationship?: Yes POCUS Exam (ED) <Aramis Linda MD - Last Filed: 04/27/24 21:33> Limited Cardiac Exam DATE OF EXAM: 04/27/24 TIME OF EXAM: 18:35 PROVIDER THAT PERFORMED THE STUDY: Aramis Linda REASON FOR EXAM: Hypotension and Hypovolemic shock VISUALIZED STRUCTURES: Four Chambers, Left atrium, Left ventricle, LVOT, Right atrium, Right ventricle, Aortic valve, Mitral valve, Interventricular septum and IVC VIEW OBTAINED: Apical 4-Chamber, Parasternal long-axis, Parasternal short-axis and Subxiphoid PERTINENT FINDINGS/IMPRESSION: IVC inspiratory collapsability (flat IVC) and Other (hyperdinamic tachycardic LV) severe hypovolemia Exam complete [place] Exam DATE OF EXAM: 04/27/24 TIME OF EXAM: 18:40 PROVIDER THAT PERFORMED THE STUDY: Aramis Linda IS THIS A REPEAT EXAM DURING THIS ENCOUNTER: No REASON FOR EXAM: Hypotension and Shock VISUALIZED STRUCTURES: Aorta, Bladder, Cardiac Four Chambers, Heart, Inferior Vena Cava, Lung/left side, Lung/right side, Gray's pouch and Other structures: heart, lung, abdomen, vessels PERTINENT FINDINGS/IMPRESSION: Abnormal IVC, details of abnormalities: flat IVC DIFFERENTIAL DIAGNOSES: hyperdynamiv LV , no free fluid in abdomen, left lung with b lines and cosolidation Echocardiography/Transthoracic Limited Exam: Exam Complete Chest Limited Exam: Exam Complete Abdominal Limited Exam: Exam Complete Retroperitoneal Limited Exam: Exam Complete Vital Signs & Lab Results <Luke Garcia MD - Last Filed: 04/28/24 07:05> Point of Care Results Nursing Point of Care Results: 2 Finger Stick Blood Glucose 173 H (70 - 120) 04/28/24 01:01 Lab Results 04/28/24 06:00 04/28/24 06:00 Blood Type / Crossmatch: 2 No Data to Display Complete Blood Count: 2 White Blood Count 7.85 10^3/uL (4.4-10.8) 04/28/24 06:00 Red Blood Count 4.62 10^6/uL (4.36-5.78) 04/28/24 06:00 Hemoglobin 14.4 g/dL (13.5-17.5) 04/28/24 06:00 Hematocrit 43.9 % (40.0-50.0) 04/28/24 06:00 Platelet Count 150 10^3/uL (130-400) 04/28/24 06:00 Venous Blood Lactate 11.2 mmol/L (<or=2.0) H* 04/27/24 15:30 Complete Metabolic Panel: 2 Sodium 140 mmol/L (136-145) 04/28/24 06:00 Potassium 4.4 mmol/L (3.5-5.1) 04/28/24 06:00 Chloride 106 mmol/L (98-107) 04/28/24 06:00 Carbon Dioxide 16.7 mmol/L (21.0-32.0) L 04/28/24 06:00 BUN 51 mg/dL (7-18) H 04/28/24 06:00 Creatinine 4.2 mg/dL (0.70-1.30) H* 04/28/24 06:00 Est GFR (CKD-EPI 2020) 14.20 (mL/min/1.73m2) 04/28/24 06:00 Magnesium 1.7 mg/dL (1.8-2.4) L 04/28/24 06:00 Calcium 7.8 mg/dL (8.5-10.1) L 04/28/24 06:00 Albumin 1.9 g/dL (3.4-5.0) L 04/28/24 06:00 Glucose 201 mg/dL (74-106) H 04/28/24 06:00 Liver Function Panel: 2 Alanine Aminotransferase (ALT/SGPT) 25 U/L (16-63) 04/28/24 06: 00 Aspartate Amino Transf (AST/SGOT) 81 U/L (15-37) H 04/28/24 06: 00 Coagulation Panel: 2 No Data to Display Cardiac Panel: 2 Troponin I 30 ng/L (<or=76) 04/27/24 NT-Pro-B Natriuret Pep 8116 pg/mL (<300) H 04/27/24 Creatine Kinase 218 U/L (39-308) 04/25/24 Arterial Blood Gas: 2 Arterial Blood Gas Sample Site Right Radial 04/27/24 16:04 Arterial Blood pH 7.34 (7.35-7.45) L 04/27/24 16:04 Arterial Blood pO2 217 mmHg (80-105) H 04/27/24 16:04 Arterial Blood pCO2 19 mmHg (35-45) L* 04/27/24 16:04 Arterial Blood Oxygen Saturation > 99 % (95-98) H 04/27/24 16:0 4 Arterial Blood HCO3 10 mmol/L (22-26) L 04/27/24 16:04 Arterial Blood Base Excess -16 mmol/L (-2-3) L 04/27/24 16:04 Arterial Blood Total CO2 9 mmol/L (23-27) L 04/27/24 16:04 Venous Blood Gas: 2 Venous Blood pH 7.14 (7.31-7.41) L* 04/28/24 06:00 Venous Blood Partial Pressure O2 76 mmHg 04/28/24 06:00 Venous Blood Partial Pressure CO2 41 mmHg (41-51) 04/28/24 06:0 0 Venous Blood Oxygen Saturation 94 % 04/28/24 06:00 Venous Blood HCO3 14 mmol/L (23-28) L 04/28/24 06:00 Venous Blood Base Excess -15 mmol/L (-2-3) L 04/28/24 06:00 Venous Blood Total Carbon Dioxide 13 mmol/L (24-29) L 04/28/24 06:00 Pancreas Panel: 2 Lipase 21 U/L (<78) 04/27/24 13:49 Thyroid Panel: 2 Thyroid Stimulating Hormone (TSH) 4.94 uIU/mL (0.36-3.74) H 04/27/24 13:49 Infectious Disease: 2 Coronavirus (COVID-19)(PCR) Negative (Negative) 04/27/24 14:01 Coronavirus 2019 Source Nasopharynx 04/27/24 14:01 Influenza Virus Type A (PCR) Negative (Negative) 04/27/24 14:0 1 Influenza Virus Type B (PCR) Negative (Negative) 04/27/24 14:0 1 Respiratory Syncytial Virus (PCR) Negative (Negative) 04/27/24 14:01 Blood Cultures: 2 No Data to Display Toxicology Panel: 2 No Data to Display <Aramis Linda MD - Last Filed: 04/27/24 21:33> Vital Signs Most Recent Vital Signs: Most Recent Vital Signs Temp Pulse Resp BP Pulse Ox 36.4 C 117 H 32 H 102/49 L 97 04/27/24 13:27 04/27/24 16:49 04/27/24 16:49 04/27/24 16:49 04/27/24 16:49
[2024-04-27] MEDS: Albuterol/Ipratropium 3 ML UPD VIAL UPD (13:53)
[2024-04-27] MEDS: methylPREDNISolone SUCC 125 MG VIAL IVP (13:53)
[2024-04-27 13:58] LABS: BE (Venous) -13 mmol/L (-2-3); HCO3 (Venous) 16 mmol/L (23-28); O2 Sat (Venous) 35 %; TCO2 (Venous) 15 mmol/L (24-29); pCO2 (Venous) 46 mmHg (41-51); pO2 (Venous) 27 mmHg
[2024-04-27 13:59] LABS: Lactate 11.7 mmol/L (<or=2.0); pH (Venous) 7.14 (7.31-7.41)
[2024-04-27 14:00] LABS: Abs Immature Grans 0.04 10^3/uL (0.0-0.06); HCT 49.7 % (40.0-50.0); HGB 16.2 g/dL (13.5-17.5); MCHC 32.6 % (32.0-36.0); MCV 95 fL (80-95); MPV 9.5 fL (8.0-11.0); Platelet Count 199 10^3/uL (130-400); RBC 5.23 10^6/uL (4.36-5.78); RDW 12.7 % (11.8-14.1); RDW-SD 45.2 fL; WBC 5.56 10^3/uL (4.4-10.8)
[2024-04-27] MEDS: Normal Saline 1,000 ML 1000 ML IV ×2 (14:03→15:37)
[2024-04-27] MEDS: Prochlorperazine 10 MG/2 ML VIAL IVP (14:05)
[2024-04-27 14:23] LABS: Absolute Lymphocyte Count 0.22 10^3/uL (1.2-3.4); Absolute Monocyte Count 0.06 10^3/uL (0.1-0.8); Absolute Neutrophil Count 5.17 10^3/uL (1.2-6.7); Atypical Lymphocytes % 0 %; Bands % 21 %; Diff Comment Manual Differential; Metamyelocytes % 2
[2024-04-27 14:29] LABS: ALT 27 U/L (16-63); AST 25 U/L (15-37); Albumin 2.5 g/dL (3.4-5.0); Alkaline Phosphatase 83 U/L (46-116); Anion Gap 22.8 mmol/L (3-11); BUN 46 mg/dL (7-18); Bilirubin, Total 1.16 mg/dL (0.2-1.0); CO2 18.2 mmol/L (21.0-32.0); Calcium 9.1 mg/dL (8.5-10.1); Chloride 97 mmol/L (98-107); Glucose 326 mg/dL (74-106); Magnesium 1.7 mg/dL (1.8-2.4); NT-proBNP 8116 pg/mL (<300); Potassium 4.1 mmol/L (3.5-5.1); Sodium 138 mmol/L (136-145); TSH (W/Ref FT4) 4.94 uIU/mL (0.36-3.74); Total Protein 7.6 g/dL (6.4-8.2); Troponin I 23 ng/L (<or=76)
[2024-04-27 14:30] LABS: Procalcitonin 92.27 ng/mL
[2024-04-27 14:32] LABS: CREATININE 4.2 mg/dL (0.70-1.30)
[2024-04-27 14:42] LABS: COVID-19 PCR Negative (Negative); Influenza A PCR Negative (Negative); Influenza B PCR Negative (Negative); RSV PCR Negative (Negative)
[2024-04-27 14:43] LABS: Source Nasopharynx
--- NOTE | 2024-04-27 15:01 | DI.CT_ITS ---
Exam(s) CT CHEST/ABD/PEL WO EXAM: CT CHEST/ABD/PEL WO CLINICAL HISTORY: dyspnea, cough, abdominal pain, renal failure. TECHNIQUE: Imaging Protocol: Axial computed tomography images with coronal and sagittal reformatted images were created and reviewed. Computer aided detection (CAD) was utilized. CONTRAST MATERIAL: Noncontrast COMPARISON: CT CT CHEST/ABD/PEL WO from 11/06/2018 CR,XR XR CHEST 2V PA LATERAL from 04/25/2024 FINDINGS: CHEST: The exam is mildly limited by motion and artifact from arm positioning. Pulmonary parenchyma: Area of consolidation noted in lateral left lower lobe. Milder infiltrates see n posteriorly. Minimal patchy infiltrates noted in the right lung base. No dominant measurable mass . Tracheobronchial tree: No bronchiectasis. No mucous plugging.No bronchial wall thickening. Pleura: Small left pleural effusion. No pneumothorax. Mediastinum: Enlarged subcarinal lymph node measuring 4.2 cm in greatest dimension which may be react jaylyn. Pulmonary arteries: No visible emboli. Cardiovascular: Normal heart size. Coronary artery calcifications. No pericardial effusion. Thoraci c aorta non-dilated. Bones: Unremarkable for age. No lytic or blastic lesions.No compression fractures. Soft tissues: Unremarkable. ABDOMEN and PELVIS: Liver: Normal density. No suspicious mass. Gallbladder and biliary tract: No evidence of stones or wall thickening. No biliary dilatation. Pancreas: Normal density, no abnormal calcifications or inflammatory process. Spleen: Normal. Kidneys: Normal size, contour and axis. No radiodense stones. No obstructive uropathy. No suspicious masses seen. Adrenal glands: No masses seen. Aorta: Abdominal portion non-dilated. Lymph nodes: Within normal limits. Soft tissues: Unremarkable. Bladder: Nearly empty, not well evaluated. Bowel: Mildly dilated small bowel loops. The colon is unremarkable. No bowel wall thickening. Lee endix normal. Peritoneal cavity: No ascites. No focal collection. No mesenteric inflammatory response. No free ai r. Bones: Compression screw in right proximal femur. Degenerative changes in the spine Reproductive organs: Unremarkable for age. IMPRESSION: Area of consolidated pneumonia in the lateral left lower lobe. Mild patchy infiltrates at both lung bases. Small left pleural effusion. Mildly dilated loops of small bowel without evidence of obstruction. Findings could represent enteri tis. Findings called to Dr. Garcia of the emergency department. RADIATION DOSE DELIVERED: Total DLP DATA REPOSITORY: All CT scans at this facility are submitted to the National Radiology Data Registry (NRDR) Dose Index Registry (DIR) with the [employer] [place] [employer] ([employer]). RADIATION OPTIMIZATION: All CT scans at this facility use at least one of these dose optimization te chniques: automated exposure control; mA and/or kV adjustment per patient size (includes targeted exa ms where dose is matched to clinical indication); or iterative reconstruction.
[2024-04-27 15:22] LABS: Lab Add On Test DONE
[2024-04-27 15:22] LABS: Lab Add On Test DONE
[2024-04-27] MEDS: Metoprolol 5 MG/5 ML VIAL IVP (15:25)
[2024-04-27] MEDS: MAGNESIUM SULFATE 2 GM/50 ML BAG IV_INF (15:26)
--- NOTE | 2024-04-27 15:30 | RT.EKG_ITS ---
APPROVED REPORT Exam: Resting ECG Reason for Exam: dyspnea Patient Location: E HR:122 bpm ECG Measurements Heart Rate 122 AXIS SD 166 P 60 QRSd 87 QRS 71 QT 278 T 63 QTc 396 Conclusion Sinus tachycardia...rate> 99 Inferior infarct, acute...ST>0.10mV, T upright, II III aVF no reciprocal depressions, ?pericarditis
[2024-04-27 15:40] LABS: Lactate 11.2 mmol/L (<or=2.0)
[2024-04-27 15:48] LABS: Lipase 21 U/L (<78); PHOSPHORUS 5.1 mg/dL (2.6-4.7)
[2024-04-27 16:06] LABS: BE -16 mmol/L (-2-3); HCO3 10 mmol/L (22-26); pH 7.34 (7.35-7.45); pO2 217 mmHg (80-105); tCO2 9 mmol/L (23-27)
[2024-04-27 16:09] LABS: FIO2 60 %; Site Right Radial; sO2 > 99 % (95-98)
[2024-04-27 16:10] LABS: pCO2 19 mmHg (35-45)
[2024-04-27 16:10] LABS: Troponin I 26 ng/L (<or=76)
[2024-04-27] MEDS: Norepinephrine in D5W 8 MG/250 ML BAG 9.375 MG IV (16:13)
[2024-04-27] MEDS: Normal Saline 1,000 ML 2000 ML IV (16:17)
[2024-04-27] MEDS: Lactated Ringers 1,000 ML 1000 ML IV (16:40)
[2024-04-27 17:22] LABS: BUN 45 mg/dL (7-18); Calcium 7.9 mg/dL (8.5-10.1); Chloride 103 mmol/L (98-107); Estimated GFR 16.01 (mL/min/1.73m2); Glucose 277 mg/dL (74-106); Sodium 140 mmol/L (136-145)
[2024-04-27 17:25] LABS: CREATININE 3.8 mg/dL (0.70-1.30)
[2024-04-27 17:59] LABS: Troponin I 30 ng/L (<or=76)
[2024-04-27] MEDS: VANCOMYCIN 2,000 MG in Normal Saline 500 ML 250 MG IVPB (18:50)
[2024-04-27] MEDS: ACETAMINOPHEN 1,000 MG/100 ML BAG 1000 MG (19:08)
--- NOTE | 2024-04-27 19:45 | DI.RAD_ITS ---
Exam(s) XR PORTABLE CHEST AP EXAM: XR PORTABLE CHEST AP CLINICAL HISTORY: IJ central line palcement. TECHNIQUE: 2D digital imaging was performed. COMPARISON: CR,XR XR CHEST 2V PA LATERAL from 04/25/2024 FINDINGS: Single AP portable view. The distal tip of the newly placed right jugular central line is in the right atrium. Heart size is upper normal. The mediastinum is not widened. Right lung remains clear and there is no pneumothorax. However, the size of the left lung infiltrate has significantly increased in exhibit signs of possible cavitation. There also appears to be some infiltrate in the left lower lobe retrocardiac region. There is a small left pleural effusion also e vident. There is no fracture or destruction of the left ribcage. IMPRESSION: Compared to 04/25/2024 there been significant increase in size of the left lower lobe lung infiltrate .There may be cavitation here. Small left pleural effusion. Chest CT scan is recommended. Distal tip of the right jugular central line is in the right atrium. DATA REPOSITORY: RADIATION DOSE DELIVERED:
--- NOTE | 2024-04-27 20:14 | W.PM.HP.N ---
Date of service: 04/27/24 Time of Service: 21:42 Assessment and Plan Assessment and plan (1) Septic shock due to undetermined organism: Start date: 04/27/24 Status: Acute Assessment and plan: This is a 73-year-old gentleman with worsening respiratory status and now septic shock with possible staph pneumonia complicating influenza which she has had now possibly for more than a week. He has started to respond to IV fluid resuscitation which been aggressive with POC revealing preserved left ventricular ejection fraction and collapsing right vascular system of the heart which has improved with IV fluids. He remains severely metabolically acidotic with his acute infection but hopefully increase perfusion will improve his SHALONDA and acidosis. He does not appear to be in DKA but consider that protocol if he is not responding to treatment of his infection with fluid resuscitation is on norepinephrine for pressure control presently. He has started without urine. We will hold his usual antihypertensives until he stabilizes. Aggressive respiratory treatment with nebulizers and IV Solu-Medrol. He has been placed on cefepime and vancomycin for pneumonia. He has no other source of infection noted at this time. He may need respiratory support with BiPAP now only on O2 supplementation. He is a full code. (2) SHALONDA (acute kidney injury): Start date: 04/27/24 Status: Acute Assessment and plan: Aggressive IV fluid resuscitation with pressure support hopefully improving his renal function. Trend labs. (3) Acidosis, lactic: Start date: 04/27/24 Status: Acute Assessment and plan: Patient metformin is being held and IV fluid resuscitation with monitoring labs. Glucometer measurements ACHS for every 6 hours with consideration of DKA protocol if he is not improving and hyperglycemia persists. He has hypomagnesemia with repletion and potassium is in normal range but with acidosis elevated with SHALONDA. No potassium IV and consider insulin infusion if acidosis not improving and potassium remains elevated. (4) Pneumonia: Start date: 04/27/24 Status: Acute Assessment and plan: Influenza with worsening infiltrates most likely bacterial with concerns for Staphylococcus pneumonia. IV vancomycin and cefepime. Patient also appears to have some enteritis and stool cultures and evaluation have been done with cefepime to cover possible colitis. He due to possible source of infection with his septic shock. (5) Influenza A: Start date: 04/25/24 Status: Acute Assessment and plan: His fever is only manifesting now and he was positive for flu with Tamiflu low-dose to be given adjusted to renal function. (6) Hypomagnesemia: Start date: 04/27/24 Status: Acute Assessment and plan: Replete IV and follow-up lab. (7) Type 2 diabetes mellitus: Status: Chronic Assessment and plan: Hold outpatient medical therapy with glucometer measurements before meals and at bedtime with moderate sliding scale insulin coverage for now but consider insulin drip with DKA protocol if acidosis persists despite fluid resuscitation and treatment of underlying infection and potassium remains elevated relative to acidosis. He has not been severely hyperglycemic with his infection but Solu-Medrol may worsen this. (8) HTN (hypertension): Assessment and plan: Hold outpatient medical therapy with patient on norepinephrine for hypotension. (9) Hyperlipidemia: Status: Chronic Assessment and plan: Continue outpatient medical therapy. History of Present Illness History of Present Illness Chief Complaint: Progressive shortness of breath and weakness Narrative: This is a 73-year-old male patient who for the ED May 23, 2024 with a 1 week history of cough with increasing shortness of breath having a history of reactive airway disease. He was again last at home his had similar symptoms. He had no fever at that time and tested positive for flu being sent home with symptomatic treatment and not been initiated on Tamiflu most likely because the patient's symptoms have been for 1 week. He returned to the ED the day of admission with markedly worsening symptoms including extreme weakness with almost no intake of food or water with decreased urine output, fatigue with falling and some loose stools. He presented hypotensive with a spiked temperature 103 ?F reported by the ED physician he was tachycardic with hypoxemia. He continued with tachypnea requiring O2 supplementation was on BiPAP for short time. He also had metabolic acidosis and was in septic shock. He did respond to aggressive IV fluid resuscitation receiving more than 4 L normal saline and then lactated Ringer's with eventual stabilization with some urine output and improved respiration and not requiring BiPAP. VBG did reveal partially compensated respiratory alkalosis for his metabolic acidosis and pH down from previous measurement at 7.14 from 7.37 on 04/25/2024. Imaging did reveal possible abscess seen with left pneumonia with question of staph and patient being placed on IV antibiotic therapy with cefepime after 1 dose of Zosyn along with vancomycin. He also was initiated on Tamiflu with his symptoms now with fever and not initially placed on Tamiflu when he presented 2 days prior to admission. He was given Solu-Medrol to be continued and respiratory treatment would be continued with aggressive nebulizer treatment and oxygen supplement along with BiPAP as needed. He was requiring norepinephrine for his hypotension and this will be continued in the ICU. He did have central line placed. Blood cultures were obtained and surprisingly his WBC was not elevated despite his presentation. He was in acute kidney injury compared to his baseline creatinine. This was from decreased intake. His metabolic acidosis may have been worsened also by being on metformin for diabetes. He does not appear to be in DKA. He is a full code. Review of Systems Narrative: 13 point review of systems positive for slight edema over lower extremities, some nausea with his diarrhea and his positive review per HPI, otherwise unrevealing or stable. PFSH All Active Problems (Updated 04/28/24 @ 06:42 by Tristian Ritter) Hypovolemia (Acute) Septic shock (Acute) Hypomagnesemia (Acute) Type 2 diabetes mellitus (Chronic) Hyperlipidemia (Chronic) Septic shock due to undetermined organism (Acute) Pneumonia (Acute) Acidosis, lactic (Acute) SHALONDA (acute kidney injury) (Acute) Influenza A (Acute) Tubular adenoma of colon (Acute ~01/28/23) X4 Plantar fasciitis (Acute) Thumb pain (Acute) Arthritis of carpometacarpal (CMC) joint of right thumb (Acute) Asthma (Chronic) Erectile dysfunction (Acute) Subjective tinnitus (Acute) Asymmetrical sensorineural hearing loss (Acute) Chronic neck pain (Acute) GERD (gastroesophageal reflux disease) (Chronic) Medical History History of fracture of right hip Hx of hyperlipidemia HTN (hypertension) Diabetes Surgical History History of colonoscopy (~01/2023) path sent--3 year History of testicular surgery History of fusion of cervical spine Social History Smoking/Tobacco Use Status: Never Smoking risk assessment performed?: Yes Alcohol Intake: current Alcohol Intake frequency: a few times a month Drug use: Occasionally Substance use type: marijuana Household members: spouse Housing: house current occupation: computers What is your relationship status?: Panel score (0-1 are the most socially isolated patients): 1 Do you feel safe at home: Yes Do you feel safe in your relationship?: Yes Meds Allergies and Home Medications Allergies Allergy/AdvReac Type Severity Reaction Status Date / Time niacin Allergy Unknown Unknown Verified 04/27/24 14:31 shrimp Allergy Anaphylaxsi Verified 04/27/24 14:31 s Home Medications ?Medication ?Instructions ?Recorded ?Confirmed ?Type atenolol 25 mg tablet 25 mg PO DAILY 11/06/18 04/27/24 History atorvastatin 40 mg tablet 40 mg PO DAILY 11/06/18 04/27/24 History cholecalciferol (vitamin D3) 25 1,000 unit PO DAILY 11/06/18 04/27/24 History mcg (1,000 unit) capsule epinephrine 0.3 mg/0.3 mL 11/06/18 01/24/23 History injection, auto-injector (EpiPen) glipizide 10 mg tablet 10 mg PO DAILY 11/06/18 04/27/24 History lisinopril 40 mg tablet 40 mg PO DAILY 11/06/18 04/27/24 History omega [id number]-fish oil 1,000 mg 1 cap PO DAILY 11/06/18 04/27/24 History (120 mg-180 mg) capsule (Fish Oil) albuterol sulfate 90 mcg/actuation 2 inh inhalation Q6H PRN 02/06/22 04/27/24 History breath activated powder inhaler cyanocobalamin (vitamin B-12) 1,000 mcg PO DAILY 02/06/22 04/27/24 History 1,000 mcg tablet empagliflozin 25 mg tablet 25 mg PO DAILY 02/06/22 04/27/24 History famotidine 20 mg tablet 20 mg PO BID 02/06/22 04/27/24 History metformin 1,000 mg tablet 1,000 mg PO BID 02/06/22 04/27/24 History clotrimazole 1 % topical cream 1 applic topical BID 01/23/23 04/27/24 History sildenafil 50 mg tablet 50 mg PO DAILY PRN 01/23/23 04/27/24 History benzonatate 100 mg capsule 100 mg PO BID PRN #7 caps 04/25/24 04/27/24 Rx cetirizine 10 mg tablet 10 mg PO DAILY PRN #7 tabs 04/25/24 04/27/24 Rx fluticasone propionate 50 1 spray intranasal DAILY #16 grams 04/25/24 04/27/24 Rx mcg/actuation nasal spray,suspension (Flonase Allergy Relief) promethazine-DM 6.25 mg-15 mg/5 mL 5 ml PO Q6H PRN #118 mL 04/25/24 04/27/24 Rx oral syrup Exam Narrative Exam Narrative: General: Patient appears older than stated age and chronically ill, disheveled and unshaven, alert and oriented times person place at least, moderate respiratory distress with tachypnea and speaking in partial sentences with tachypnea. HEENT: Normocephalic, course and facial features, eyes with pupils equal and react to light symmetrically, extraocular movement intact and sclera anicteric. Oropharynx with dry mucosa and poor dentition with missing and discolored teeth. Neck: Supple without JVD. Back: Kyphotic without CVA tenderness. Lungs: Decreased aeration left more than right lung vazquez with diffuse inspiratory coarse crackles with rales on the left, rhonchi with diffuse expiratory wheeze and increased expiratory phase. Poor aeration overall. Heart: Distant heart sounds with tachycardic rate and normal rhythm. No murmurs or gallops appreciated. Abdomen: Obese contour, soft nontender to palpation with no palpable hepatosplenomegaly. Bowel sounds positive all quadrants. Genitalia/rectal: Exam deferred. Monterroso catheter is in place draining clear urine. Extremities: 1+, soft pitting edema ankles and feet, chronic changes skin over legs with loss of hair and slight atrophy but no hyperpigmentation or erythema and no ulcerations. No clubbing or cyanosis. Patient was monitored in the ED with fair capillary refill with brought to the ICU. Skin: Pale, cool and dry, n Neuro: Cranial nerves II through XII gross intact, no focalizing motor deficits and no tremor. Psych: Flattened affect with patient fatigued with short sentences. Mood depressed. No abnormal thought processes. Remote memory intact and recent memory less intact. Results Imaging Imaging Studies: EXAM: CT CHEST/ABD/PEL WO CLINICAL HISTORY: dyspnea, cough, abdominal pain, renal failure. TECHNIQUE: Imaging Protocol: Axial computed tomography images with coronal and sagittal reformatted images were created and reviewed. Computer aided detection (CAD) was utilized. CONTRAST MATERIAL: Noncontrast COMPARISON: CT CT CHEST/ABD/PEL WO from 11/06/2018 CR,XR XR CHEST 2V PA LATERAL from 04/25/2024 FINDINGS: CHEST: The exam is mildly limited by motion and artifact from arm positioning. Pulmonary parenchyma: Area of consolidation noted in lateral left lower lobe. Milder infiltrates seen posteriorly. Minimal patchy infiltrates noted in the right lung base. No dominant measurable mass. Tracheobronchial tree: No bronchiectasis. No mucous plugging.No bronchial wall thickening. Pleura: Small left pleural effusion. No pneumothorax. Mediastinum: Enlarged subcarinal lymph node measuring 4.2 cm in greatest dimension which may be reactive. Pulmonary arteries: No visible emboli. Cardiovascular: Normal heart size. Coronary artery calcifications. No pericardial effusion. Thoracic aorta non-dilated. Bones: Unremarkable for age. No lytic or blastic lesions.No compression fractures. Soft tissues: Unremarkable. ABDOMEN and PELVIS: Liver: Normal density. No suspicious mass. Gallbladder and biliary tract: No evidence of stones or wall thickening. No biliary dilatation. Pancreas: Normal density, no abnormal calcifications or inflammatory process. Spleen: Normal. Kidneys: Normal size, contour and axis. No radiodense stones. No obstructive uropathy. No suspicious masses seen. Adrenal glands: No masses seen. Aorta: Abdominal portion non-dilated. Lymph nodes: Within normal limits. Soft tissues: Unremarkable. Bladder: Nearly empty, not well evaluated. Bowel: Mildly dilated small bowel loops. The colon is unremarkable. No bowel wall thickening. Appendix normal. Peritoneal cavity: No ascites. No focal collection. No mesenteric inflammatory response. No free air. Bones: Compression screw in right proximal femur. Degenerative changes in the spine Reproductive organs: Unremarkable for age. IMPRESSION: Area of consolidated pneumonia in the lateral left lower lobe. Mild patchy infiltrates at both lung bases. Small left pleural effusion. Mildly dilated loops of small bowel without evidence of obstruction. Findings could represent enteritis. Labs 04/28/24 06:00 04/27/24 16:57 Labs: Laboratory Results - last 24 hr 04/27/24 04/27/24 04/27/24 13:49 13:49 14:01 WBC 5.56 RBC 5.23 Hgb 16.2 Hct 49.7 MCV 95 MCH 31.0 MCHC 32.6 RDW 12.7 Plt Count 199 MPV 9.5 Immature Gran % 0.0 Neutrophils % 72.0 Band Neutrophils % 21 Lymphocytes % 4.0 Atypical Lymphs % 0 Monocytes % 1.0 Eosinophils % 0.0 Basophils % 0.0 Metamyelocytes % 2 Nucleated RBC % 0.0 Absolute Neutrophils 5.17 Absolute Lymphocytes 0.22 L Absolute Monocytes 0.06 L Absolute Eosinophils 0.00 Absolute Basophils 0.00 ABG Sample Site ABG pH ABG pCO2 ABG pO2 ABG HCO3 ABG Total CO2 ABG O2 Saturation ABG Base Excess VBG pH 7.14 L* VBG pCO2 46 VBG pO2 27 VBG HCO3 16 L VBG Total CO2 15 L VBG O2 Saturation 35 VBG Base Excess -13 L VBG Lactate 11.7 H* Cancelled FiO2 Sodium 138 Potassium 4.1 Chloride 97 L Carbon Dioxide 18.2 L Anion Gap 22.8 H BUN 46 H Creatinine 4.2 H* D Est GFR (CKD-EPI 2020) 14.20 Glucose 326 H Calcium 9.1 Phosphorus 5.1 H Magnesium 1.7 L Total Bilirubin 1.16 H AST 25 ALT 27 Alkaline Phosphatase 83 Troponin I 23 NT-Pro-B Natriuret Pep 8116 H Total Protein 7.6 Albumin 2.5 L Lipase 21 Procalcitonin 92.27 TSH 4.94 H COVID-19 Source Nasopharynx SARS-CoV-2 (PCR) Negative Influenza Type A (PCR) Negative Influenza Type B (PCR) Negative RSV (PCR) Negative Add-On Test Request DONE 04/27/24 04/27/24 04/27/24 14:55 15:17 15:30 WBC RBC Hgb Hct MCV MCH MCHC RDW Plt Count MPV Immature Gran % Neutrophils % Band Neutrophils % Lymphocytes % Atypical Lymphs % Monocytes % Eosinophils % Basophils % Metamyelocytes % Nucleated RBC % Absolute Neutrophils Absolute Lymphocytes Absolute Monocytes Absolute Eosinophils Absolute Basophils ABG Sample Site ABG pH ABG pCO2 ABG pO2 ABG HCO3 ABG Total CO2 ABG O2 Saturation ABG Base Excess VBG pH VBG pCO2 VBG pO2 VBG HCO3 VBG Total CO2 VBG O2 Saturation VBG Base Excess VBG Lactate 11.2 H* FiO2 Sodium Potassium Chloride Carbon Dioxide Anion Gap BUN Creatinine Est GFR (CKD-EPI 2020) Glucose Calcium Phosphorus Magnesium Total Bilirubin AST ALT Alkaline Phosphatase Troponin I 26 NT-Pro-B Natriuret Pep Total Protein Albumin Lipase Cancelled Procalcitonin TSH COVID-19 Source SARS-CoV-2 (PCR) Influenza Type A (PCR) Influenza Type B (PCR) RSV (PCR) Add-On Test Request DONE 04/27/24 04/27/24 16:04 16:57 WBC RBC Hgb Hct MCV MCH MCHC RDW Plt Count MPV Immature Gran % Neutrophils % Band Neutrophils % Lymphocytes % Atypical Lymphs % Monocytes % Eosinophils % Basophils % Metamyelocytes % Nucleated RBC % Absolute Neutrophils Absolute Lymphocytes Absolute Monocytes Absolute Eosinophils Absolute Basophils ABG Sample Site Right Radial ABG pH 7.34 L ABG pCO2 19 L* ABG pO2 217 H ABG HCO3 10 L ABG Total CO2 9 L ABG O2 Saturation > 99 H ABG Base Excess -16 L VBG pH VBG pCO2 VBG pO2 VBG HCO3 VBG Total CO2 VBG O2 Saturation VBG Base Excess VBG Lactate FiO2 60 Sodium 140 Potassium 4.0 Chloride 103 Carbon Dioxide 16.0 L Anion Gap 21.0 H BUN 45 H Creatinine 3.8 H* Est GFR (CKD-EPI 2020) 16.01 Glucose 277 H Calcium 7.9 L Phosphorus Magnesium Total Bilirubin AST ALT Alkaline Phosphatase Troponin I 30 NT-Pro-B Natriuret Pep Total Protein Albumin Lipase Procalcitonin TSH COVID-19 Source SARS-CoV-2 (PCR) Influenza Type A (PCR) Influenza Type B (PCR) RSV (PCR) Add-On Test Request Last Vital Signs Temp 36.4 C 04/27/24 13:27 Pulse 117 H 04/27/24 16:49 Resp 32 H 04/27/24 16:49 BP 102/49 L 04/27/24 16:49 Pulse Ox 97 04/27/24 16:49 Time Spent Time spent with Patient: >75 minutes Time was spent: preparing to see the patient(eg.review tests), obtaining and/or reviewing separately otained hiistory, ordering medications,tests, procedures, referring, communicating with other health career technical counselor, indepentently interpreting results and care coordination
[2024-04-27 20:39] LABS: Bilirubin Negative (Negative); Blood Large (Negative); Clarity Sl Cloudy (Clear); Glucose 500 mg/dL (Negative); Ketones Trace mg/dL (Negative); Leukocyte Esterase Negative (Negative); Nitrite Negative (Negative); Specific Gravity >= 1.030 (1.005-1.025); Urobilinogen 0.2 mg/dL (Up to 0.2)
[2024-04-27 20:50] LABS: Bacteria Negative HPF (Negative); Epithelial Cells Few HPF (Negative); RBC 20-50 HPF (0-2); WBC 0-2 HPF (0-5)
[2024-04-27] MEDS: Lactated Ringers 1,000 ML 2000 ML IV (20:50)
[2024-04-27 20:51] LABS: Crystals Rare Calcium Oxalate HPF (Negative); Mucus Moderate (Negative)
[2024-04-27 20:52] LABS: C & S Indicated? No; Casts 3-5 Hyaline LPF (Negative); Other Cells Few Transitional (Negative)
--- NOTE | 2024-04-27 20:58 | DI.VRAD_ITS ---
PROCEDURE INFORMATION: Exam: XR Chest Exam date and time: 04/27/2024 8:05 PM Age: 73 years old Clinical indication: Device placement; Other: Ij central line palcement TECHNIQUE: Imaging protocol: Radiologic exam of the chest. Views: 1 view. COMPARISON: CT CHEST/ABD/PEL WO 04/27/2024 2:54 PM FINDINGS: Lungs: Mild-moderate central vascular congestion. 9 x 4 cm peripheral ovoid opacity in the left lower lobe superior segment showing a central aeration concerning for cavitating pneumonia. Cavitating mass considered less likely. Consider strep pneumonia, or possibly Aspergillus, Legionella, or staph aureus. Additional patchy elements in the left base could represent atelectasis or additional pneumonia. Pleural spaces: Small left pleural effusion. No pneumothorax. Heart/Mediastinum: Moderate cardiomegaly. No tracheal/mediastinal shift. Vasculature: Right IJ line placed with its tip in the central to lower right atrial distribution. Bones/joints: No acute osseous abnormalities are identified. Mild thoracic spondylosis. IMPRESSION: 1. Right IJ line placed with its tip in the central to lower right atrial distribution. No pneumothorax. 2. Ovoid opacity in the peripheral left lower lobe superior segment concerning for cavitating pneumonia. Cavitating mass/malignancy considered less likely although imaging follow-up to document regression with treatment is recommended. Additional lesser involvement in the left base. 3. Small left pleural effusion. Dictated and Authenticated by: Werner Cerda MD. Orderin Maddi Self MD
--- NOTE | 2024-04-27 21:57 | NUR.NOTE ---
Patient presented to the ER at 1324 with c/o difficulty breathing and fatigue for the past 2 days. However patient and son gave history that patient has been sick with flu for the past 1 week. At 191 right central line was inserted by by Dr. Linda and suturing was done at 191. At 185 verbal order was made by the provider, APAP ordered and initiated at 1908, LR ordered and initiated at 193. LR 2L ordered and initiated at 2044. Patient currently on Norepinephrine at 15mcg.Patient being maintained on oxy-mask at 10L with end-tidal at 33 currently
[2024-04-27 22:29] LABS: T4, Free 1.8 ng/dL (0.8-2.2)
[2024-04-27 22:37] LABS: C Diff PCR Negative (Negative)
[2024-04-28] VITALS (199 sets, daily range): BP systolic 57–187; BP diastolic 45–145; PULSE 54–158; RESP 3–30; TEMP 36.6–38.6; O2SAT 78–98
[2024-04-28] MEDS: methylPREDNISolone SUCC 125 MG VIAL 80 MG IVP ×2 (00:20→08:36)
[2024-04-28] MEDS: MORPHine 2 MG/ML SYR IVP ×4 (00:21→14:40)
[2024-04-28] MEDS: CEFEPIME 2 GM in Normal Saline 100 ML IVPB (00:23)
[2024-04-28] MEDS: Lactated Ringers 500 ML 125 ML IV (01:00)
[2024-04-28] MEDS: Insulin Aspart 300 UNITS/3 ML PEN SC ×3 (01:01→11:52)
[2024-04-28] MEDS: Normal Saline Flush 10 ML SYR IVP ×6 (01:02→23:11)
[2024-04-28] MEDS: Albuterol/Ipratropium 3 ML UPD VIAL UPD ×3 (01:02→18:06)
[2024-04-28] MEDS: Acetaminophen 325 MG TAB PO (01:03)
[2024-04-28] MEDS: Norepinephrine in D5W 8 MG/250 ML BAG 37.5 MG IV (01:22)
--- NOTE | 2024-04-28 06:00 | DI.RAD_ITS ---
Exam(s) XR PORTABLE CHEST AP EXAM: XR PORTABLE CHEST AP CLINICAL HISTORY: Pneumonia with respiratory failure. TECHNIQUE: 2D digital imaging was performed. COMPARISON: CR,XR XR PORTABLE CHEST AP from 04/27/2024 FINDINGS: Single AP portable view. Distal tip of right jugular central line is in the right atrium, unchanged. Heart size is upper normal. The mediastinum is not widened. Right lung remains clear. There is some mild infiltrate in the left lower lobe. However, there has been significant radiographic improvement in the previously described left lung infiltrate and decrea se in size of the left pleural effusion. There are no new areas of infiltrate IMPRESSION: Left lung improvement as above. Still some residual left lower lobe infiltrate. Recommend follow-up chest CT scan when clinically possible. DATA REPOSITORY: RADIATION DOSE DELIVERED:
[2024-04-28 06:04] LABS: BE (Venous) -15 mmol/L (-2-3); HCO3 (Venous) 14 mmol/L (23-28); O2 Sat (Venous) 94 %; TCO2 (Venous) 13 mmol/L (24-29); pCO2 (Venous) 41 mmHg (41-51); pO2 (Venous) 76 mmHg
[2024-04-28 06:08] LABS: HCT 43.9 % (40.0-50.0); HGB 14.4 g/dL (13.5-17.5); MCH 31.2 pg (27.0-33.0); MCHC 32.8 % (32.0-36.0); MCV 95 fL (80-95); MPV 9.6 fL (8.0-11.0); Platelet Count 150 10^3/uL (130-400); RBC 4.62 10^6/uL (4.36-5.78); RDW 13.2 % (11.8-14.1); RDW-SD 46.5 fL; WBC 7.85 10^3/uL (4.4-10.8); pH (Venous) 7.14 (7.31-7.41)
[2024-04-28 06:29] LABS: ALT 25 U/L (16-63); AST 81 U/L (15-37); Albumin 1.9 g/dL (3.4-5.0); Alkaline Phosphatase 53 U/L (46-116); Anion Gap 17.3 mmol/L (3-11); BUN 51 mg/dL (7-18); CO2 16.7 mmol/L (21.0-32.0); Calcium 7.8 mg/dL (8.5-10.1); Chloride 106 mmol/L (98-107); Glucose 201 mg/dL (74-106); Magnesium 1.7 mg/dL (1.8-2.4); Potassium 4.4 mmol/L (3.5-5.1); Sodium 140 mmol/L (136-145)
[2024-04-28 06:33] LABS: CREATININE 4.2 mg/dL (0.70-1.30)
[2024-04-28] MEDS: Norepinephrine in D5W 8 MG/250 ML BAG 75 MG IV (07:08)
--- NOTE | 2024-04-28 07:20 | DI.VRAD_ITS ---
PROCEDURE INFORMATION: Exam: XR Chest Exam date and time: 04/28/2024 6:38 AM Age: 73 years old Clinical indication: Other: Pneumonia with respiratory failure TECHNIQUE: Imaging protocol: Radiologic exam of the chest. Views: 1 view. COMPARISON: CR XR PORTABLE CHEST AP 04/27/2024 8:05 PM FINDINGS: Tubes, catheters and devices: Right internal jugular central venous access catheter with tip terminating at the inferior cavoatrial junction. Lungs: Interval improvement in aeration of the left lung field. Diffuse increase in interstitial lung markings similar to prior comparison. Pleural spaces: Perhaps small residual left pleural effusion. No pneumothorax. Heart/Mediastinum: Cardiomegaly. Bones/joints: No acute osseous abnormality. IMPRESSION: 1. Improvement in aeration of the left lung field. Residual diffuse increase in interstitial markings bilaterally. 2. Perhaps small residual left pleural effusion. 3. Stable medical charge entry specialist. Dictated and Authenticated by: Michael Hamilton MD. Orderin Riya Lubin MD
[2024-04-28] MEDS: Normal Saline 500 ML 1000 ML IV (08:07)
--- NOTE | 2024-04-28 08:34 | PDOC.CMIN ---
Date of service: 04/28/24 Time of Service: 08:34 Care Management Initial Assmt Initial Assessment Reason for Hospitalization: septic shock and pneumonia Functional Status/Living Situation Patient Presentation: Reddy was lying in bed in the ICU on Bipap when CM attempted to meet with him. Reddy remains critically ill. He is in metabolic acidosis and is requiring vasopressors for blood pressure support. He attempted to answer questions but it was clearly an effort so CM decided to postpone the visit until tomorrow. CM asked if it would be OK if his was called to provide information but he shook his head no and mumbled something CM was unable to understand. CM will follow. Town of Residence: [place], [place] Resides with: Spouse (Rachel ) Employment Status: Retired Medications Medication Management: No Issues/Barriers identified Advance Directives Advance Directives: Do you have an Advance Directive: N 11/06/18 17:00 AD On File at [facility]: N 11/06/18 17:00 Date Asked 04/27/24 04/27/24 22:56 AD Date Reviewed COLST On File at [facility] COLST Date Scanned Code Status Resuscitation Status Full Code Insurance Coverage/Financial Issues Insurance: [facility] Care Team Visit Care Team Role Provider Type Werner Giron MD [facility] STAFF PHYSICIAN FATMATA OBREGON Primary Care Provider NON-[facility] STAFF PHYSICIAN Aramis Linda MD Emergency Provider [facility] STAFF PHYSICIAN Tristian Ritter Admit Provider [facility] STAFF PHYSICIAN Attending Provider Discharge Potential Discharge Needs: PCP F/U Appt Anticipated Barriers to Discharge: None Identified Patient/Family Education Needs: Review discharge instructions, discuss Ask Me Three Transportation: Private vehicle Plan: Anticipate Reddy will be discharged home with no new services when medically cleared. He will follow up with his PCP and plan of care and transport with family. CM will continue to assess for discharge needs. Social Determinants of Health Screening Social Determinants of Health last assessed: 04/29/24 Will the Patient Participate in the Screening?: Yes Do you worry about having a steady place to live?: no Problems where you live: no known problems In the past 12 months, have you had to go without electric, gas, oil or water in your home?: no Have you or anyone in your house had to go without enough food to eat?: no Has lack of transportation kept you from medical appointments or from doing things needed for daily living?: no Has anyone in your life made you feel unsafe or unsupported?: no How hard is it for you to pay for the very basics like food, housing, medical care, and heating? Would you say it is:: Not hard at all Do you want help finding or keeping work or a job?: I do not need or want help If for any reason you need help with day-to-day activities such as bathing, preparing meals, shopping, managing finances, etc., do you get the help you need?: I get all the help I need How often do you feel lonely or isolated from those around you?: Never Do you speak a language other than Chinese at home?: Yes Does the patient want assistance with any of the above?: No Social Determinants of Health Comments(SDOH Details): Pt speaks occasional polish at home Health Related Social Needs Health related social needs: education (Z55.6) PFSH All Active Problems (Updated 04/28/24 @ 12:07 by Werner Giron) Acute hypoxic respiratory failure (Acute) DVT prophylaxis (Acute) Hypovolemia (Acute) Septic shock (Acute) Hypomagnesemia (Acute) Type 2 diabetes mellitus (Chronic) Hyperlipidemia (Chronic) Septic shock due to undetermined organism (Acute) Pneumonia (Acute) Acidosis, lactic (Acute) SHALONDA (acute kidney injury) (Acute) Influenza A (Acute) Tubular adenoma of colon (Acute ~01/28/23) X4 Plantar fasciitis (Acute) Thumb pain (Acute) Arthritis of carpometacarpal (CMC) joint of right thumb (Acute) Asthma (Chronic) Erectile dysfunction (Acute) Subjective tinnitus (Acute) Asymmetrical sensorineural hearing loss (Acute) Chronic neck pain (Acute) GERD (gastroesophageal reflux disease) (Chronic) Medical History History of fracture of right hip Hx of hyperlipidemia HTN (hypertension) Diabetes Surgical History History of colonoscopy (~01/2023) path sent--3 year History of testicular surgery History of fusion of cervical spine Social History Smoking/Tobacco Use Status: Never Smoking risk assessment performed?: Yes Alcohol Intake: current Alcohol Intake frequency: a few times a month Drug use: Occasionally Substance use type: marijuana Household members: spouse Housing: house current occupation: computers What is your relationship status?: Panel score (0-1 are the most socially isolated patients): 1 Do you feel safe at home: Yes Do you feel safe in your relationship?: Yes
[2024-04-28] MEDS: Enoxaparin 30 MG/0.3 ML SYR SC (08:38)
[2024-04-28] MEDS: Atorvastatin 40 MG TAB PO (08:39)
[2024-04-28] MEDS: Cyanocobalamin 500 MCG TAB 1000 MCG PO (08:39)
[2024-04-28] MEDS: MAGNESIUM SULFATE 1 GM/100 ML BAG IV_INF (08:51)
[2024-04-28] MEDS: Oseltamivir 30 MG CAP PO (09:04)
[2024-04-28] MEDS: ACETAMINOPHEN 1,000 MG/100 ML BAG 400 MG IVPB (09:15)
[2024-04-28] MEDS: Fluticasone NASAL SPRAY 16 GM BTL NS (09:25)
[2024-04-28 10:54] LABS: BE (Venous) -14 mmol/L (-2-3); HCO3 (Venous) 14 mmol/L (23-28); O2 Sat (Venous) 79 %; TCO2 (Venous) 13 mmol/L (24-29); pCO2 (Venous) 35 mmHg (41-51); pO2 (Venous) 45 mmHg
[2024-04-28 10:56] LABS: Lactate 4.9 mmol/L (<or=2.0)
[2024-04-28] MEDS: Norepinephrine in D5W 8 MG/250 ML BAG 56.25 MG IV (11:08)
--- NOTE | 2024-04-28 11:08 | PGE_ITS ---
Date of Service Date of service: 04/28/24 Time of Service: 11:08 Assessment and Plan Assessment and plan (1) Septic shock due to undetermined organism: Start date: 04/27/24 Status: Acute Assessment and plan: Septic shock associated with cavitary pneumonia suggesting staph aureus complicating influenza which she has had now possibly for more than a week. He has started to respond to IV fluid resuscitation which been aggressive with POCUS revealing preserved hyperdynamic left ventricular ejection fraction and collapsing right vascular system of the heart which has improved with IV fluids c/w vasodilatory shock. He remains severely metabolically acidotic with his acute infection but some improvement. COntinue cefepime and vancnomycin continue norepinephrine drip, has central line. He may benefit from second pressure for vasodilatory shock after aggressive fluid resuscitation if not improving. On solumedrol, will change to hydrocortisone. POCUS did not look like cardiogenic shock. Get formal echo to reassess. (2) Acute hypoxic respiratory failure: Status: Acute Assessment and plan: He maintains O2 well on nasal canunla, acidosis driving tachypnea and compensation. CPAP for support. (3) SHALONDA (acute kidney injury): Start date: 04/27/24 Status: Acute Assessment and plan: Initially aneuric but urine output improved to just adequate after aggressive IV fluid resuscitation with pressor support, now oliguric again. Metabolic acidosis did improve, so no immediate inidcation for hemodialysis. Electrolytes not severely deranged Monitor closely, BMP in PM. (4) Acidosis, lactic: Start date: 04/27/24 Status: Acute Assessment and plan: I think primarily due to sepsis, possibly component of metformin is being held and IV fluid resuscitation with monitoring labs. I don't think DKA, but possible component, beta-hydroxybuterate is a send out here. Initiating insulin drip, see below. Low C02 shows he is compensating and blowing off CO2, but at current levels it is not clear he would benefit form bicarbonate drip, defer this for now. (5) Pneumonia: Start date: 04/27/24 Status: Acute Assessment and plan: Influenza with worsening infiltrates most likely bacterial with concerns for Staphylococcus pneumonia. IV vancomycin and cefepime. (6) Influenza A: Start date: 04/25/24 Status: Acute Assessment and plan: Despite a week of symptoms, given severity of illness treating with tamiflu low- dose to be given adjusted to renal function. (7) Hypomagnesemia: Start date: 04/27/24 Status: Acute Assessment and plan: Repleted IV and follow-up lab. (8) Type 2 diabetes mellitus: Status: Chronic Assessment and plan: [facility] outpatient medical therapy with glucometer measurements before meals and at bedtime His blood sugars have been around 2-300. He was started on steroids. I don't think there is DKA component but will initiate insulin drip while he is critically ill for good blood sugar control to keep sugars at least 80-180. (9) DVT prophylaxis: Status: Acute Assessment and plan: enoxaparin Subjective Subjective Patient reports: feels better and fever; denies blood in stool, nausea or vomiting Interval history since last seen: Events: After additional 2 liters LR (6 total in ED) started making urine, 220ml overnight Feels fatigued, week, but better than last night. No chest pain or palpitations. He started having some loose stools. Taking some liquids today. Exam Narrative Exam Narrative: General: Alert and oriented, moderate respiratory distress with tachypnea and speaking in partial sentences with tachypnea, mask in place Lungs: Decreased aeration left more than right lung vazquez with diffuse inspiratory coarse breath sounds, some rales on the left, diffuse expiratory rhonchi. moderate aeration overall. Heart: Distant heart sounds with tachycardic rate and normal rhythm. No murmurs or gallops appreciated. Abdomen: +BS, soft nontender to palpation with no palpable hepatosplenomegaly. Genitalia/rectal: Monterroso catheter is in place draining clear urine. Extremities: trace soft pitting edema ankles and feet, no rashes/wounds. Skin: Pale, cool and dry, no longer mottled, cap refill in fingers/toes 2-3 seconds Objective Last Vital Signs Temp 38.2 C H 04/28/24 09:10 Pulse 130 H 04/28/24 11:01 Resp 22 04/28/24 11:01 BP 92/55 L 04/28/24 11:01 Pulse Ox 97 04/28/24 11:00 Laboratory Results - last 24 hr 04/27/24 04/27/24 04/27/24 13:28 13:49 13:49 WBC 5.56 RBC 5.23 Hgb 16.2 Hct 49.7 MCV 95 MCH 31.0 MCHC 32.6 RDW 12.7 Plt Count 199 MPV 9.5 Immature Gran % 0.0 Neutrophils % 72.0 Band Neutrophils % 21 Lymphocytes % 4.0 Atypical Lymphs % 0 Monocytes % 1.0 Eosinophils % 0.0 Basophils % 0.0 Metamyelocytes % 2 Nucleated RBC % 0.0 Absolute Neutrophils 5.17 Absolute Lymphocytes 0.22 L Absolute Monocytes 0.06 L Absolute Eosinophils 0.00 Absolute Basophils 0.00 ABG Sample Site ABG pH ABG pCO2 ABG pO2 ABG HCO3 ABG Total CO2 ABG O2 Saturation ABG Base Excess VBG pH 7.14 L* VBG pCO2 46 VBG pO2 27 VBG HCO3 16 L VBG Total CO2 15 L VBG O2 Saturation 35 VBG Base Excess -13 L VBG Lactate 11.7 H* Cancelled FiO2 Sodium 138 Potassium 4.1 Chloride 97 L Carbon Dioxide 18.2 L Anion Gap 22.8 H BUN 46 H Creatinine 4.2 H* D Est GFR (CKD-EPI 2020) 14.20 Glucose 326 H Calcium 9.1 Phosphorus 5.1 H Magnesium 1.7 L Total Bilirubin 1.16 H AST 25 ALT 27 Alkaline Phosphatase 83 Troponin I 23 NT-Pro-B Natriuret Pep 8116 H Total Protein 7.6 Albumin 2.5 L Lipase 21 Procalcitonin 92.27 TSH 4.94 H Free T4 1.8 Urine Color Urine Clarity Urine pH Ur Specific [place] Urine Protein Urine Ketones Urine Blood Urine Nitrite Urine Bilirubin Urine Urobilinogen Ur Leukocyte Esterase Urine RBC Urine WBC Ur Epithelial Cells Urine Crystals Urine Bacteria Urine Casts Urine Mucus Urine Other Ur Culture Indicated? Urine Glucose Stl C.difficile Tox PCR COVID-19 Source Cancelled SARS-CoV-2 (PCR) Cancelled Influenza Type A (PCR) Cancelled Influenza Type B (PCR) Cancelled RSV (PCR) Cancelled Add-On Test Request DONE 04/27/24 04/27/24 04/27/24 14:01 14:55 15:17 WBC RBC Hgb Hct MCV MCH MCHC RDW Plt Count MPV Immature Gran % Neutrophils % Band Neutrophils % Lymphocytes % Atypical Lymphs % Monocytes % Eosinophils % Basophils % Metamyelocytes % Nucleated RBC % Absolute Neutrophils Absolute Lymphocytes Absolute Monocytes Absolute Eosinophils Absolute Basophils ABG Sample Site ABG pH ABG pCO2 ABG pO2 ABG HCO3 ABG Total CO2 ABG O2 Saturation ABG Base Excess VBG pH VBG pCO2 VBG pO2 VBG HCO3 VBG Total CO2 VBG O2 Saturation VBG Base Excess VBG Lactate FiO2 Sodium Potassium Chloride Carbon Dioxide Anion Gap BUN Creatinine Est GFR (CKD-EPI 2020) Glucose Calcium Phosphorus Magnesium Total Bilirubin AST ALT Alkaline Phosphatase Troponin I NT-Pro-B Natriuret Pep Total Protein Albumin Lipase Cancelled Procalcitonin TSH Free T4 Urine Color Urine Clarity Urine pH Ur Specific [place] Urine Protein Urine Ketones Urine Blood Urine Nitrite Urine Bilirubin Urine Urobilinogen Ur Leukocyte Esterase Urine RBC Urine WBC Ur Epithelial Cells Urine Crystals Urine Bacteria Urine Casts Urine Mucus Urine Other Ur Culture Indicated? Urine Glucose Stl C.difficile Tox PCR COVID-19 Source Nasopharynx SARS-CoV-2 (PCR) Negative Influenza Type A (PCR) Negative Influenza Type B (PCR) Negative RSV (PCR) Negative Add-On Test Request DONE 04/27/24 04/27/24 04/27/24 15:30 16:04 16:57 WBC RBC Hgb Hct MCV MCH MCHC RDW Plt Count MPV Immature Gran % Neutrophils % Band Neutrophils % Lymphocytes % Atypical Lymphs % Monocytes % Eosinophils % Basophils % Metamyelocytes % Nucleated RBC % Absolute Neutrophils Absolute Lymphocytes Absolute Monocytes Absolute Eosinophils Absolute Basophils ABG Sample Site Right Radial ABG pH 7.34 L ABG pCO2 19 L* ABG pO2 217 H ABG HCO3 10 L ABG Total CO2 9 L ABG O2 Saturation > 99 H ABG Base Excess -16 L VBG pH VBG pCO2 VBG pO2 VBG HCO3 VBG Total CO2 VBG O2 Saturation VBG Base Excess VBG Lactate 11.2 H* FiO2 60 Sodium 140 Potassium 4.0 Chloride 103 Carbon Dioxide 16.0 L Anion Gap 21.0 H BUN 45 H Creatinine 3.8 H* Est GFR (CKD-EPI 2020) 16.01 Glucose 277 H Calcium 7.9 L Phosphorus Magnesium Total Bilirubin AST ALT Alkaline Phosphatase Troponin I 26 30 NT-Pro-B Natriuret Pep Total Protein Albumin Lipase Procalcitonin TSH Free T4 Urine Color Urine Clarity Urine pH Ur Specific [place] Urine Protein Urine Ketones Urine Blood Urine Nitrite Urine Bilirubin Urine Urobilinogen Ur Leukocyte Esterase Urine RBC Urine WBC Ur Epithelial Cells Urine Crystals Urine Bacteria Urine Casts Urine Mucus Urine Other Ur Culture Indicated? Urine Glucose Stl C.difficile Tox PCR COVID-19 Source SARS-CoV-2 (PCR) Influenza Type A (PCR) Influenza Type B (PCR) RSV (PCR) Add-On Test Request 04/27/24 04/27/24 04/28/24 20:30 21:30 06:00 WBC 7.85 RBC 4.62 Hgb 14.4 Hct 43.9 MCV 95 MCH 31.2 MCHC 32.8 RDW 13.2 Plt Count 150 MPV 9.6 Immature Gran % Neutrophils % Band Neutrophils % Lymphocytes % Atypical Lymphs % Monocytes % Eosinophils % Basophils % Metamyelocytes % Nucleated RBC % Absolute Neutrophils Absolute Lymphocytes Absolute Monocytes Absolute Eosinophils Absolute Basophils ABG Sample Site ABG pH ABG pCO2 ABG pO2 ABG HCO3 ABG Total CO2 ABG O2 Saturation ABG Base Excess VBG pH 7.14 L* VBG pCO2 41 VBG pO2 76 VBG HCO3 14 L VBG Total CO2 13 L VBG O2 Saturation 94 VBG Base Excess -15 L VBG Lactate FiO2 Sodium 140 Potassium 4.4 Chloride 106 Carbon Dioxide 16.7 L Anion Gap 17.3 H BUN 51 H Creatinine 4.2 H* Est GFR (CKD-EPI 2020) 14.20 Glucose 201 H Calcium 7.8 L Phosphorus Magnesium 1.7 L Total Bilirubin 0.70 AST 81 H ALT 25 Alkaline Phosphatase 53 Troponin I NT-Pro-B Natriuret Pep Total Protein 6.0 L Albumin 1.9 L Lipase Procalcitonin TSH Free T4 Urine Color Dark Yellow Urine Clarity Sl Cloudy Urine pH 5.0 Ur Specific [place] >= 1.030 H Urine Protein >=300 H Urine Ketones Trace H Urine Blood Large H Urine Nitrite Negative Urine Bilirubin Negative Urine Urobilinogen 0.2 Ur Leukocyte Esterase Negative Urine RBC 20-50 H Urine WBC 0-2 Ur Epithelial Cells Few Urine Crystals Rare Calcium Oxalate Urine Bacteria Negative Urine Casts 3-5 Hyaline Urine Mucus Moderate Urine Other Few Transitional Ur Culture Indicated? No Urine Glucose 500 H Stl C.difficile Tox PCR Negative COVID-19 Source SARS-CoV-2 (PCR) Influenza Type A (PCR) Influenza Type B (PCR) RSV (PCR) Add-On Test Request 04/28/24 10:48 WBC RBC Hgb Hct MCV MCH MCHC RDW Plt Count MPV Immature Gran % Neutrophils % Band Neutrophils % Lymphocytes % Atypical Lymphs % Monocytes % Eosinophils % Basophils % Metamyelocytes % Nucleated RBC % Absolute Neutrophils Absolute Lymphocytes Absolute Monocytes Absolute Eosinophils Absolute Basophils ABG Sample Site ABG pH ABG pCO2 ABG pO2 ABG HCO3 ABG Total CO2 ABG O2 Saturation ABG Base Excess VBG pH 7.20 L VBG pCO2 35 L VBG pO2 45 VBG HCO3 14 L VBG Total CO2 13 L VBG O2 Saturation 79 VBG Base Excess -14 L VBG Lactate 4.9 H* FiO2 Sodium Potassium Chloride Carbon Dioxide Anion Gap BUN Creatinine Est GFR (CKD-EPI 2020) Glucose Calcium Phosphorus Magnesium Total Bilirubin AST ALT Alkaline Phosphatase Troponin I NT-Pro-B Natriuret Pep Total Protein Albumin Lipase Procalcitonin TSH Free T4 Urine Color Urine Clarity Urine pH Ur Specific [place] Urine Protein Urine Ketones Urine Blood Urine Nitrite Urine Bilirubin Urine Urobilinogen Ur Leukocyte Esterase Urine RBC Urine WBC Ur Epithelial Cells Urine Crystals Urine Bacteria Urine Casts Urine Mucus Urine Other Ur Culture Indicated? Urine Glucose Stl C.difficile Tox PCR COVID-19 Source SARS-CoV-2 (PCR) Influenza Type A (PCR) Influenza Type B (PCR) RSV (PCR) Add-On Test Request Time Spent with Patient Time Spent with Patient: >50 minutes Time was spent: preparing to see the patient(eg.review tests), obtaining and/or reviewing separately otained hiistory, ordering medications,tests, procedures, referring, communicating with other health sub acute care nurse, indepentently interpreting results, counseling the patient and care coordination
[2024-04-28 11:21] LABS: Vancomycin, Random 12.7 ug/mL
--- NOTE | 2024-04-28 11:34 | PHA.REVIEW2 ---
Pharmacy Admission Review Admission Clinical Review Admission Pharmacy Review: Hypovolemia (Acute) Septic shock (Acute) Hypomagnesemia (Acute) Septic shock due to undetermined organism (Acute) Pneumonia (Acute) Acidosis, lactic (Acute) SHALONDA (acute kidney injury) (Acute) Influenza A (Acute) niacin Allergy (Unknown, Verified 04/27/24 14:31) Unknown shrimp Allergy (Verified 04/27/24 14:31) Anaphylaxsis Resuscitation Status Full Code Height 5 ft 11 in Weight 113.3 kg Comments Comments/Follow Ups: monitor renal function (Renally adjusted meds: cefepime, enoxaparin and Tamiflu) Pharmacy Admission Review Renal Dosing Renal Dosing: BUN 51 mg/dL (7-18) H 04/28/24 06:00 Creatinine 4.2 mg/dL (0.70-1.30) H* 04/28/24 06:00 Medications needing adjustments: Intervened (CrCl 20 mL/min, BUN increased from 45 and SCr increased from 3.8) List of meds needing interventions: Changed cefepime dosing from 2g q8h to 2g q24h Renally adjusted meds: cefepime, enoxaparin and Tamiflu Anticoagulation Anticoagulation: Hgb 14.4 g/dL (13.5-17.5) 04/28/24 06:00 Hct 43.9 % (40.0-50.0) 04/28/24 06:00 Plt Count 150 10^3/uL (130-400) 04/28/24 06:00 Creatinine 4.2 mg/dL (0.70-1.30) H* 04/28/24 06:00 DVT Prophylaxis: Reviewed Medications: Enoxaparin (30mg daily) Opiate Usage Evaluate Pain Scale/Pains Meds: Reviewed (morphine 2mg IVP q2h PRN - 6mg / 24 hrs) Scheduled Bowel Reg ordered if on Opiates?: No (PRN docusate/Miralax) Relevant Labs Relevant Labs: Sodium 140 mmol/L (136-145) 04/28/24 06:00 Potassium 4.4 mmol/L (3.5-5.1) 04/28/24 06:00 Chloride 106 mmol/L (98-107) 04/28/24 06:00 Phosphorus 5.1 mg/dL (2.6-4.7) H 04/27/24 13:49 Magnesium 1.7 mg/dL (1.8-2.4) L 04/28/24 06:00 Electrolytes, C-Reactive P, ESR: Reviewed (Mg 1.7 - IV infusion given this morning) DM Control DM Control: Glucose 201 mg/dL (74-106) H 04/28/24 06:00 Finger Stick Blood Glucose 186 0747 Finger Stick Blood Glucose 186 0718 Finger Stick Blood Glucose 186 0718 DM Control: Reviewed Insulin Dosing, Diabetic Medication: Has order for SS insulin Cardiac Review Cardiac Review: Troponin I 30 ng/L (<or=76) 04/27/24 16:57 NT-Pro-B Natriuret Pep 8116 pg/mL (<300) H 04/27/24 13:49 Blood Pressure 92/55 1101 Heart Rate 130 Blood Pressure 90/63 1051 Heart Rate 125 Blood Pressure 77/54 1045 Heart Rate 126 Blood Pressure 93/56 1031 Heart Rate 127 Blood Pressure 95/45 1016 Heart Rate 126 Blood Pressure 91/55 1001 Heart Rate 132 Blood Pressure 95/57 0945 Heart Rate 130 Blood Pressure 120/82 0930 Heart Rate 130 Blood Pressure 102/87 0916 Heart Rate 133 Blood Pressure 119/70 0901 Heart Rate 140 Blood Pressure 122/75 0859 Heart Rate 139 BP, HR, EF%: Reviewed (oxygen flow rate 10) List meds needing interventions: has norepinephrine infusion running at 30 mcg/min (decreased from 40mcg/min this morning). Home antihypertensives are currently on hold. QTc Review QTc: Reviewed (396 from 04/27/24) IV to PO Switch IV Medications: Reviewed (APAP, cefepime, methylprednisolone, morphine and vancomycin) Home Meds Home Med List reviewed: Intervened Relevent Home Meds Not ordered & why?: atenolol (on hold per H+P), benzonatate (PRN), cetirizine (PRN), vitamin D3, Jardiance (on hold per H+P), Epipen (PRN), famotidine, glipizide (on hold per H+P), lisinopril (on hold per H+P), metformin (on hold per H+P), fish oil and sildenafil (PRN) Changed promethazine-DM syrup to patients own order (non-formulary) Current Meds Current Medication Order Review: Intervened Comments: Added 2nd PRN to levalbuterol order per pharmacy protocol Pharmacy Antibiotic Review Relevant Labs: Relevant Labs 04/27/24 13:49 Procalcitonin 92.27 WBC 7.85 10^3/uL (4.4-10.8) 04/28/24 06:00 Procalcitonin 92.27 ng/mL 04/27/24 13:49 Temperature 38.2 C 0910 Temperature 36.6 C 0730 Temperature 38.1 C 0528 Temperature 38.6 C 0400 Temperature 36.8 C 0021 Pharmacy Antibiotic Activity: C/S review and Reviewed, no change Comments: Patient is on cefepime (renally adjusted) and vancomycin, day 1, for septic shock pneumonia. Vancomycin currently dosed at 500mg q18h with predicted AUC of 508 and trough of 19.3. Due to poor/changing renal function, ordered another level for tomorrow with morning labs. Will adjust dose as needed based on level. Blood cultures pending. Patient is also on Tamiflu (renally adjusted) day 1. Comments Comments/Follow Ups: monitor renal function (Renally adjusted meds: cefepime, enoxaparin and Tamiflu)
[2024-04-28] MEDS: VANCOMYCIN 500 MG in Normal Saline 100 ML 100 MG IVPB (11:57)
[2024-04-28] MEDS: INSULIN REGULAR IN 0.9 % NACL 100 UNIT/100 ML BAG IVINF (12:14)
[2024-04-28] MEDS: DEXTROSE 5%-LACTATED RINGERS 1,000 ML 150 ML IV ×2 (12:17→19:13)
[2024-04-28 14:41] LABS: Anion Gap 16.4 mmol/L (3-11); BUN 60 mg/dL (7-18); CO2 15.6 mmol/L (21.0-32.0); Calcium 7.4 mg/dL (8.5-10.1); Chloride 106 mmol/L (98-107); Glucose 261 mg/dL (74-106); Potassium 4.6 mmol/L (3.5-5.1); Sodium 138 mmol/L (136-145)
[2024-04-28] MEDS: Norepinephrine in D5W 8 MG/250 ML BAG 65.625 MG IV (14:41)
[2024-04-28 14:45] LABS: CREATININE 4.9 mg/dL (0.70-1.30)
--- NOTE | 2024-04-28 17:42 | W.POCUS ---
Pocus Exam Limited Cardiac Exam DATE OF EXAM: 04/28/24 TIME OF EXAM: 17:15 PROVIDER THAT PERFORMED THE STUDY: Werner Giron IS THIS A REPEAT EXAM DURING THIS ENCOUNTER: Yes, Different provider REASON FOR EXAM: Hypotension and Septic Shock VISUALIZED STRUCTURES: four chambers, left ventricle, right ventricle and IVC VIEW OBTAINED: Apical 4-Chamber, Parasternal long-axis, Parasternal short-axis and Subxiphoid PERTINENT FINDINGS/IMPRESSION: IVC inspiratory collapsability (flat IVC, widens with elevation of legs) DIFFERENTIAL DIAGNOSES: hyperdynamic LV Exam complete (done with Dr. Linda)
[2024-04-28] MEDS: Lactated Ringers 1,000 ML 1000 ML IV (18:02)
[2024-04-28 18:29] LABS: BE (Venous) -12 mmol/L (-2-3); HCO3 (Venous) 16 mmol/L (23-28); O2 Sat (Venous) 80 %; TCO2 (Venous) 15 mmol/L (24-29); pCO2 (Venous) 41 mmHg (41-51); pO2 (Venous) 48 mmHg
[2024-04-28 18:32] LABS: Lactate 3.6 mmol/L (<or=2.0); pH (Venous) 7.19 (7.31-7.41)
[2024-04-28 18:43] LABS: Anion Gap 14.2 mmol/L (3-11); BUN 62 mg/dL (7-18); CO2 18.8 mmol/L (21.0-32.0); Calcium 7.1 mg/dL (8.5-10.1); Chloride 106 mmol/L (98-107); Glucose 248 mg/dL (74-106); Potassium 4.4 mmol/L (3.5-5.1); Sodium 139 mmol/L (136-145)
[2024-04-28 18:44] LABS: CREATININE 4.9 mg/dL (0.70-1.30)
[2024-04-28] MEDS: Norepinephrine in D5W 8 MG/250 ML BAG 46.875 MG IV (18:52)
[2024-04-28] MEDS: Hydrocortisone SOD SUC. 100 MG VIAL IVP (20:28)
[2024-04-28 23:00] LABS: Campylobacter PCR Negative (Negative); Salmonella PCR Negative (Negative); Shiga Toxin PCR Negative (Negative); Shigella/Enteroinvasive Ecoli Negative (Negative)
[2024-04-28] MEDS: Metoprolol 5 MG/5 ML VIAL (23:05)
[2024-04-28 23:07] LABS: BE (Venous) -12 mmol/L (-2-3); HCO3 (Venous) 16 mmol/L (23-28); O2 Sat (Venous) 78 %; TCO2 (Venous) 15 mmol/L (24-29); pCO2 (Venous) 43 mmHg (41-51); pO2 (Venous) 47 mmHg
[2024-04-28 23:10] LABS: pH (Venous) 7.18 (7.31-7.41)
[2024-04-28] MEDS: DEXTROSE 5%-LACTATED RINGERS 1,000 ML 999 ML IV (23:27)
--- NOTE | 2024-04-28 23:29 | W.EVENT ---
Date of service: 04/28/24 Time of Service: 23:29 Event Note: Called for tachycardia. Chart reviewed. Patient in with pneumonia in setting of recent flu with septic shock, and has now developed SHALONDA. Currently on Vanco, Cefepime, levophed infusion. On arrival BP approx 100/sys with Map 70s, pulse 144 unwavering, narrow complex with visible P waves. OI2 sat low 90s on BiPap. Initial concern for possible SVT given unwavering pulse. CSP produced minimal slowing to 139, patient then given 2.5 IV Lopressor with slowing to 120s. No break. It was concluded that this was in fact a sinus tachycardia, not SVT. BP transiently decreased to 88/64, responded to fluid bolus 500 cc. Currentlt remains on Levophed with BP 103/70 and pulse 129. Repeat VBG shows pH 7.18 with pCO2 43, indicating persistent metabolic acidosis with failure of respiratory compensation. I have asked respiratory to come in to assist with management but in the meantime have increased the inspiratory pressure to 12.5 from 10. A/P: Pneumonia with sepsis and respiratory insufficiency. Will continue antibiotics as is, continue pressure support with levophed and adjust ventilatory support with minimum target pH 7.30. SHALONDA persists and will continue to monitor electrolytes and fluids. Time Spent with Patient Time spent in critical care(minutes): 110 Time Spent Included: Coordination of care, Chart review, Documenting critically ill care, Time at immediate bedside and Discussing critically ill care with other medical staff
--- NOTE | 2024-04-28 23:45 | RT.EKG_ITS ---
APPROVED REPORT Exam: Resting ECG Reason for Exam: TACHYCARDIA Patient Location: I HR:142 bpm ECG Measurements Heart Rate 142 AXIS MD 188 P 83 QRSd 79 QRS 44 QT 246 T [id number] QTc 378 Conclusion Sinus tachycardia...rate> 99 Probable left atrial enlargement...P >50mS, <-0.10mV V1 Low voltage, precordial leads...precordial leads <1.0mV Nonspecific T abnormalities, lateral leads...T <-0.10mV, I aVL V5 V6
[2024-04-29] VITALS (95 sets, daily range): BP systolic 55–152; BP diastolic 22–94; PULSE 78–212; RESP 5–50; O2SAT 84–100
[2024-04-29 00:04] LABS: BE (Venous) -11 mmol/L (-2-3); HCO3 (Venous) 17 mmol/L (23-28); O2 Sat (Venous) 77 %; TCO2 (Venous) 16 mmol/L (24-29); pCO2 (Venous) 44 mmHg (41-51); pO2 (Venous) 45 mmHg
[2024-04-29 00:09] LABS: pH (Venous) 7.19 (7.31-7.41)
[2024-04-29] MEDS: Albuterol/Ipratropium 3 ML UPD VIAL UPD (00:14)
[2024-04-29] MEDS: CEFEPIME 2 GM in Normal Saline 100 ML IVPB (00:30)
[2024-04-29] MEDS: MORPHine 2 MG/ML SYR IVP ×2 (00:32→04:11)
[2024-04-29 01:03] LABS: BE (Venous) -11 mmol/L (-2-3); HCO3 (Venous) 17 mmol/L (23-28); O2 Sat (Venous) 80 %; TCO2 (Venous) 16 mmol/L (24-29); pCO2 (Venous) 44 mmHg (41-51); pO2 (Venous) 48 mmHg
[2024-04-29 01:07] LABS: pH (Venous) 7.19 (7.31-7.41)
[2024-04-29] MEDS: Norepinephrine in D5W 8 MG/250 ML BAG 46.875 MG IV (01:54)
[2024-04-29 02:02] LABS: BE (Venous) -11 mmol/L (-2-3); HCO3 (Venous) 17 mmol/L (23-28); O2 Sat (Venous) 82 %; TCO2 (Venous) 16 mmol/L (24-29); pCO2 (Venous) 40 mmHg (41-51); pH (Venous) 7.23 (7.31-7.41); pO2 (Venous) 48 mmHg
[2024-04-29 02:59] LABS: BE (Venous) -10 mmol/L (-2-3); HCO3 (Venous) 17 mmol/L (23-28); O2 Sat (Venous) 83 %; TCO2 (Venous) 16 mmol/L (24-29); pCO2 (Venous) 42 mmHg (41-51); pH (Venous) 7.23 (7.31-7.41); pO2 (Venous) 49 mmHg
[2024-04-29] MEDS: INSULIN REGULAR IN 0.9 % NACL 100 UNIT/100 ML BAG IVINF (03:20)
[2024-04-29] MEDS: Hydrocortisone SOD SUC. 100 MG VIAL IVP (03:42)
--- NOTE | 2024-04-29 04:13 | NUR.NOTE ---
0415- Hr elevated to 160-180. Page in to Dr Hernández. Pt given 2 mg iv morphine to help with restlessness/discomfort.
[2024-04-29] MEDS: Digoxin 0.5 MG/2 ML AMP 0.25 MG IVP (04:40)
[2024-04-29] MEDS: DEXTROSE 5%-WATER 250 ML 135 ML (05:40)
[2024-04-29 05:48] LABS: HCT 36.9 % (40.0-50.0); HGB 12.6 g/dL (13.5-17.5); MCH 31.6 pg (27.0-33.0); MCHC 34.1 % (32.0-36.0); MCV 93 fL (80-95); MPV 9.8 fL (8.0-11.0); RBC 3.99 10^6/uL (4.36-5.78); RDW 13.4 % (11.8-14.1); RDW-SD 46.1 fL; WBC 20.12 10^3/uL (4.4-10.8)
[2024-04-29 06:05] LABS: ALT 22 U/L (16-63); AST 56 U/L (15-37); Albumin 1.2 g/dL (3.4-5.0); Alkaline Phosphatase 47 U/L (46-116); Anion Gap 13.2 mmol/L (3-11); BUN 63 mg/dL (7-18); Bilirubin, Total 0.56 mg/dL (0.2-1.0); CO2 18.8 mmol/L (21.0-32.0); Calcium 6.8 mg/dL (8.5-10.1); Chloride 108 mmol/L (98-107); Estimated GFR 10.99 (mL/min/1.73m2); Glucose 94 mg/dL (74-106); Magnesium 1.7 mg/dL (1.8-2.4); Platelet Count 78 10^3/uL (130-400); Potassium 4.2 mmol/L (3.5-5.1); Sodium 140 mmol/L (136-145); Total Protein 4.4 g/dL (6.4-8.2)
[2024-04-29] MEDS: VANCOMYCIN 500 MG in Normal Saline 100 ML 100 MG IVPB (06:05)
[2024-04-29 06:08] LABS: CREATININE 5.2 mg/dL (0.70-1.30)
--- NOTE | 2024-04-29 06:21 | DSE_ITS ---
Date of service: 04/29/24 Time of Service: 06:21 DS: Diagnosis Discharge Diagnosis (1) Septic shock due to undetermined organism: Status: Acute (2) Acute hypoxic respiratory failure: Status: Acute (3) SHALONDA (acute kidney injury): Status: Acute (4) Acidosis, lactic: Status: Acute (5) Pneumonia: Status: Acute (6) Influenza A: Status: Acute (7) Hypomagnesemia: Status: Acute (8) Type 2 diabetes mellitus: Status: Chronic (9) DVT prophylaxis: Status: Acute Discharge Plan Disposition Condition: Critical Condition: Serious Discharge Details Reason For Visit: septic shock,pneumonia, influenza A, Enteritis Admit Date/Time: 04/27/24 21:42 Admit Provider: Tristian Ritter Attending Provider: Tristian Ritter Primary Care Provider: FATMATA OBREGON [facility] Course Hospital Course: 73 male with h/o DM admitted 3 with pneumonia in setting of recent influenza. Started on Vanco and Cefepime (after initial dose Zosyn) along with Tamiflu. Patient manifested signs septic shock with hypotension and lactate of 11.7. Blood pressure managed with IVF and Levophed infusion. Imaging showed pneumonia LLL with possible cavitation. On the evening of the patient developed regular, narrow complex tachycardia at fixed rate of 145. Out of concern for possible SVT patient given 2.5 IV Lopressor with slowing of rate to 120s without break, presumed sinus tach. Early this morning patient developed AF/RVR with rates 140-170. Levophed discontinued, transitioned to Neosynephrine, and given Digoxin 0.25 IV x 2. Current BP 88/54 (MAP 64), pulse 134, O2 sats 90% Respiratory-bernard patient has been maintained on BiPap, current setting 16/5, FiO2 45%. Most recent VBG pH7.23, pCO2 42, HCO3 17, indicative of incompletely compensated metabolic acidosis. Patient has also developed SHALONDA, latest Creatinine 5.2. Home Meds and New Rx's Prescriptions: No Action albuterol sulfate 90 mcg/actuation aerosol powdr breath activated 2 inh inhalation Q6H PRN Patient Comments: 01/28/23 pt reports has not used for months cyanocobalamin (vitamin B-12) 1,000 mcg tablet 1,000 mcg PO DAILY empagliflozin 25 mg tablet 25 mg PO DAILY famotidine 20 mg tablet 20 mg PO BID metformin 1,000 mg tablet 1,000 mg PO BID clotrimazole 1 % cream 1 applic topical BID sildenafil 50 mg tablet 50 mg PO DAILY PRN Rx Instructions: administer 30 minutes to 4 hours before activity glipizide 10 mg Tablet 10 mg PO DAILY atorvastatin 40 mg Tablet 40 mg PO DAILY atenolol 25 mg Tablet 25 mg PO DAILY epinephrine [EpiPen] 0.3 mg/0.3 mL Auto-Injector lisinopril 40 mg Tablet 40 mg PO DAILY cholecalciferol (vitamin D3) 1,000 unit Capsule 1,000 unit PO DAILY omega 2-prs-jcg-fish oil [Fish Oil] 1,000 mg (120 mg-180 mg) Capsule 1 cap PO DAILY promethazine-DM 6.25-15 mg/5 mL syrup 5 ml PO Q6H PRNQty: 118 0RF cetirizine 10 mg tablet 10 mg PO DAILY PRNQty: 7 0RF benzonatate 100 mg capsule 100 mg PO BID PRNQty: 7 0RF fluticasone propionate [Flonase Allergy Relief] 50 mcg/actuation spray,suspension 1 spray intranasal DAILY Qty: 16 0RF Rx Instructions: administer into each nostril Discharge Data Discharge Physician: Aramis Linda DS: Summary Quality:SDOH Health Related Social Needs: Health related social needs housing instability, house d, with risk of homelessness (Z59.811), education (Z55.6) DS: Data Vitals/I&O Vitals and I&O: Vital Signs Temperature 37 C 04/28/24 15:25 Temperature Source Tympanic 04/28/24 15:25 Pulse 130 H 04/29/24 04:01 Pulse 140 H 04/29/24 04:01 Respiratory Rate 14 04/29/24 04:01 Respiratory Effort Labored, Incrsd Work of Breathing 04/27/24 22:59 Respiratory Depth Shallow 04/27/24 22:59 Respiratory Pattern Tachypnea 04/27/24 22:59 Blood Pressure 96/58 L 04/29/24 04:01 Blood Pressure Mean 69 04/29/24 04:01 Blood Pressure Position Supine 04/27/24 22:59 Pulse Oximetry 92 04/29/24 04:01 Respiratory End-tidal CO2 34 04/27/24 22:07 Oxygen Delivery Method Bi-pap 04/29/24 00:14 Oxygen Flow Rate 30 04/28/24 18:06 Fraction of Inspired Oxygen (FIO2) 35 04/29/24 01:43 Pain Level 4 04/28/24 04:13 Comment MD aware 04/27/24 20:13 Intake & Output 04/28/24 04/28/24 04/29/24 11:59 23:59 11:59 Intake Total 2427.653 / 6142.632 3714.979 / 6142.632 1264.267 / 1264.267 Output Total 225 / 445 220 / 445 Balance 2202.653 / 5697.632 3494.979 / 5697.632 1244.267 / 1244.267 Weight 113.3 kg 118.6 kg Intake: IV 2007.653 / 5722.632 3714.979 / 5722.632 1264.267 / 1264.267 Oral 420 / 420 Output: Urine 225 / 445 220 / 445 Other: Urine Color Yellow Yellow Yellow Urine Appearance Sediment Clear Cloudy Comment changed drainage bag to urometer, mendez leaking at drainage bag connection site - end of mendez at drainage bag connection cracked and cut off. New drainage bag attached. tape applied at connection site due to shorter connections. Stool Size Small Stool Characteristics Soft Data Completed and Pending Labs on day of discharge: Labs from last 24 hours 04/29/24 04/29/24 04/29/24 05:40 05:40 05:24 WBC 20.12 H RBC 3.99 L Hgb 12.6 L Hct 36.9 L MCV 93 MCH 31.6 MCHC 34.1 RDW 13.4 Plt Count 78 L MPV 9.8 VBG pH VBG pCO2 VBG pO2 VBG HCO3 VBG Total CO2 VBG O2 Saturation VBG Base Excess VBG Lactate Sodium 140 Potassium Cancelled 4.2 Chloride 108 H Carbon Dioxide 18.8 L Anion Gap 13.2 H BUN 63 H Creatinine 5.2 H* Est GFR (CKD-EPI 2020) 10.99 Glucose 94 Calcium 6.8 L Magnesium 1.7 L Cancelled Total Bilirubin 0.56 AST 56 H ALT 22 Alkaline Phosphatase 47 Total Protein 4.4 L Albumin 1.2 L Free T4 Random Vancomycin 17.0 04/29/24 04/29/24 04/29/24 02:57 02:00 01:00 WBC RBC Hgb Hct MCV MCH MCHC RDW Plt Count MPV VBG pH 7.23 L 7.23 L 7.19 L VBG pCO2 42 40 L 44 VBG pO2 49 48 48 VBG HCO3 17 L 17 L 17 L VBG Total CO2 16 L 16 L 16 L VBG O2 Saturation 83 82 80 VBG Base Excess -10 L -11 L -11 L VBG Lactate Sodium Potassium Chloride Carbon Dioxide Anion Gap BUN Creatinine Est GFR (CKD-EPI 2020) Glucose Calcium Magnesium Total Bilirubin AST ALT Alkaline Phosphatase Total Protein Albumin Free T4 Random Vancomycin 04/29/24 04/28/24 04/28/24 00:00 23:02 18:25 WBC RBC Hgb Hct MCV MCH MCHC RDW Plt Count MPV VBG pH 7.19 L 7.18 L* 7.19 L VBG pCO2 44 43 41 VBG pO2 45 47 48 VBG HCO3 17 L 16 L 16 L VBG Total CO2 16 L 15 L 15 L VBG O2 Saturation 77 78 80 VBG Base Excess -11 L -12 L -12 L VBG Lactate 3.6 H* Sodium 139 Potassium 4.4 Chloride 106 Carbon Dioxide 18.8 L Anion Gap 14.2 H BUN 62 H Creatinine 4.9 H* Est GFR (CKD-EPI 2020) 11.80 Glucose 248 H Calcium 7.1 L Magnesium Total Bilirubin AST ALT Alkaline Phosphatase Total Protein Albumin Free T4 Random Vancomycin 04/28/24 04/28/24 04/28/24 14:00 10:48 06:00 WBC RBC Hgb Hct MCV MCH MCHC RDW Plt Count MPV VBG pH 7.20 L VBG pCO2 35 L VBG pO2 45 VBG HCO3 14 L VBG Total CO2 13 L VBG O2 Saturation 79 VBG Base Excess -14 L VBG Lactate 4.9 H* Sodium 138 140 Potassium 4.6 4.4 Chloride 106 106 Carbon Dioxide 15.6 L 16.7 L Anion Gap 16.4 H 17.3 H BUN 60 H 51 H Creatinine 4.9 H* 4.2 H* Est GFR (CKD-EPI 2020) 11.80 14.20 Glucose 261 H 201 H Calcium 7.4 L 7.8 L Magnesium 1.7 L Total Bilirubin 0.70 AST 81 H ALT 25 Alkaline Phosphatase 53 Total Protein 6.0 L Albumin 1.9 L Free T4 Random Vancomycin 12.7 04/27/24 13:49 WBC RBC Hgb Hct MCV MCH MCHC RDW Plt Count MPV VBG pH VBG pCO2 VBG pO2 VBG HCO3 VBG Total CO2 VBG O2 Saturation VBG Base Excess VBG Lactate Sodium Potassium Chloride Carbon Dioxide Anion Gap BUN Creatinine Est GFR (CKD-EPI 2020) Glucose Calcium Magnesium Total Bilirubin AST ALT Alkaline Phosphatase Total Protein Albumin Free T4 1.8 Random Vancomycin Preliminary micro results at discharge 04/27/24 15:30 Blood Culture - Preliminary Blood NO GROWTH 24 HOURS 04/27/24 13:49 Blood Culture - Preliminary Blood NO GROWTH 24 HOURS PFSH All Active Problems (Updated 04/28/24 @ 12:07 by Werner Giron) Acute hypoxic respiratory failure (Acute) DVT prophylaxis (Acute) Hypovolemia (Acute) Septic shock (Acute) Hypomagnesemia (Acute) Type 2 diabetes mellitus (Chronic) Hyperlipidemia (Chronic) Septic shock due to undetermined organism (Acute) Pneumonia (Acute) Acidosis, lactic (Acute) SHALONDA (acute kidney injury) (Acute) Influenza A (Acute) Tubular adenoma of colon (Acute ~01/28/23) X4 Plantar fasciitis (Acute) Thumb pain (Acute) Arthritis of carpometacarpal (CMC) joint of right thumb (Acute) Asthma (Chronic) Erectile dysfunction (Acute) Subjective tinnitus (Acute) Asymmetrical sensorineural hearing loss (Acute) Chronic neck pain (Acute) GERD (gastroesophageal reflux disease) (Chronic) Medical History History of fracture of right hip Hx of hyperlipidemia HTN (hypertension) Diabetes Surgical History History of colonoscopy (~01/2023) path sent--3 year History of testicular surgery History of fusion of cervical spine Social History Smoking/Tobacco Use Status: Never Smoking risk assessment performed?: Yes Alcohol Intake: current Alcohol Intake frequency: a few times a month Drug use: Occasionally Substance use type: marijuana Household members: spouse Housing: house current occupation: computers What is your relationship status?: Panel score (0-1 are the most socially isolated patients): 1 Do you feel safe at home: Yes Do you feel safe in your relationship?: Yes
[2024-04-29] MEDS: MAGNESIUM SULFATE 1 GM/100 ML BAG IV_INF (06:30)
--- NOTE | 2024-04-29 07:45 | RT.EKG_ITS ---
APPROVED REPORT Exam: Resting ECG Reason for Exam: s/p arrest Patient Location: I HR:146 bpm ECG Measurements Heart Rate 146 AXIS WV [id number] P [id number] QRSd 78 QRS 52 QT 265 T 242 QTc 414 Conclusion Atrial fibrillation...V-rate 97-172, irreg A-activity Low voltage, precordial leads...precordial leads <1.0mV
[2024-04-29] MEDS: MAGNESIUM SULFATE 2 GM/50 ML BAG IV_INF (08:05)
[2024-04-29] MEDS: VASOPRESSIN 50 UNITS in Normal Saline 497.5 ML 24 UNITS IV (08:23)
--- NOTE | 2024-04-29 09:01 | W.ANESAIR ---
Airway Management Note Procedure Date and Time DO NOT use this note for patients in the OR, Use Intraop Record Instead Date Performed: 04/29/24 Procedure Time: 08:00 Procedure Location Procedure Location: Intensive Care Unit Requesting Provider: Werner Giron Number of Previous Intubation attempts by other providers: 0 Procedure Type Procedure Type: Emergency Pre-Induction Setup Sterility: Hand Hygiene Preinduction Setup: Other (CPR in progress) Induction Induction Time: 08:00 Induction setup: Other Induction Medications (Indicate Dose Given): No Medications Given Mask Ventilation: None Airway Device Airway Type: Intubation Laryngoscopy: Atraumatic Laryngoscopy Airway Grade: 1 Airway Blades: Glidescope 3 Endotracheal Tube: 7.5mm ETT Depth Where Secured (cm): 24 Placement Confirmation: Cuff inflated with minimally occlusive pressure, Secured with commercial device and ETCO2 waveform present Number of Attempts (See previous attempts in note section): 1 Post Induction Management Post Induction Medications (Indicate Dose Given): Managed by Requesting Provider Gastric Tube Gastric Tube: Not Placed Procedure Complications Procedure Complications: None Procedure Outcome Procedure Outcome: Successful Procedure Comment: Responded to code blue, CPR in progress, masking by RT. Intubation performed during CPR, RT secured with e-tad. See code sheet for times. Proceduralist Performed By: Tej Caro
--- NOTE | 2024-04-29 09:04 | W.ANESVAS ---
Arterial Line Placement Date Performed: 04/29/24 Procedure Time: 08:40 Procedure Location: Intensive Care Unit Requesting Provider: Werner Giron Timeout Performed: No Sedation Given (Indicate Dose Given): No Sedation given Patient Mental Status: Other Sterility: Hand Hygiene, Surgical Cap, Surgical Mask, Sterile Gloves, Sterile Drape/Sheet and Chlorhexidine Laterality: Left Insertion Site: Femoral Arterial Line Catheter: 20G 20cm Catheter Kit Arterial Line Procedure: Vessel accessed with needle, Guidewire placed with ease and Guidewire removed Dressing: Tegaderm Applied and Sutured in Place Ultrasound: Sterile probe cover and gel used (Arrest/juan antonio-arrest situation, no order or image captured. ) Ultrasound Image Saved?: Yes Number of Attempts (See previous attempts in note section): 3 Procedure Tolerated: No Complications Procedure Outcome: Successful Procedure Comment:: Two times on the right fem with blood return and easy wire pass, however catheter with hold up on insertion. Switched to left groin with success. Performed By: Tej Caro
[2024-04-29 09:18] LABS: BE -19 mmol/L (-2-3); HCO3 11 mmol/L (22-26); pCO2 35 mmHg (35-45); pO2 100 mmHg (80-105); sO2 97 % (95-98); tCO2 11 mmol/L (23-27)
[2024-04-29 09:22] LABS: Site Left Femoral
[2024-04-29 09:25] LABS: FIO2 INTUBATED %
[2024-04-29 09:26] LABS: pH 7.11 (7.35-7.45)
--- NOTE | 2024-04-29 09:34 | PDOC.CMPRO ---
Date of service: 04/29/24 Time of Service: 09:34 Care Management Progress Note Discharge Potential Discharge Needs: Other (transfer to tertiary) Anticipated Barriers to Discharge: Bed availability Transportation: EMS Plan: Anticipate that Reddy will be transferred to a tertiary care facility when a bed becomes available. He will transport via EMS coordinated by the nursing wastewater supervisor. CM will follow. Social Determinants of Health Screening Social Determinants of Health last assessed: 04/29/24 Will the Patient Participate in the Screening?: Yes Do you worry about having a steady place to live?: yes Problems where you live: no known problems In the past 12 months, have you had to go without electric, gas, oil or water in your home?: no Have you or anyone in your house had to go without enough food to eat?: no Has lack of transportation kept you from medical appointments or from doing things needed for daily living?: no Has anyone in your life made you feel unsafe or unsupported?: no How hard is it for you to pay for the very basics like food, housing, medical care, and heating? Would you say it is:: Not hard at all Do you want help finding or keeping work or a job?: I do not need or want help If for any reason you need help with day-to-day activities such as bathing, preparing meals, shopping, managing finances, etc., do you get the help you need?: I get all the help I need How often do you feel lonely or isolated from those around you?: Never Do you speak a language other than [place] at home?: Yes Does the patient want assistance with any of the above?: No Social Determinants of Health Comments([facility] Details): Pt speaks occasional fijian at home Health Related Social Needs Health related social needs: housing instability, housed, with risk of homelessness (Z59.811) and education (Z55.6)
[2024-04-29] MEDS: SODIUM BICARBONATE 150 MEQ in DEXTROSE 5%-WATER 850 ML 500 MEQ IV (09:45)
--- NOTE | 2024-04-29 09:59 | W.NUTRFU ---
Date of service: 04/29/24 Time of Service: 10:03 Nutrition Note NOTE: Pt is 73yo male who was admitted after increasing weakness and resp sx since he was discharged 04/25. Has a fall night of 04/25. Pt admitted and had event last night - developed AF/RVR and a transfer to another facility ([facility] I believe) is in motion for today. anticipate pt's nutrition needs will be supported at this facility. No nutrition intervention planned at this time. Time Spent in Nutritional Counseling and Treatment: 0
[2024-04-29] MEDS: DEXTROSE 5% IV ×4 (10:18→14:34)
[2024-04-29] MEDS: EPINEPHRINE IV ×4 (10:18→14:34)
[2024-04-29] MEDS: WATER IV ×4 (10:18→14:34)
--- NOTE | 2024-04-29 10:21 | W.PM.DS.N ---
Date of service: 04/29/24 Time of Service: 10:21 DS: Diagnosis Discharge Diagnosis (1) Septic shock due to undetermined organism: Status: Acute (2) Acute hypoxic respiratory failure: Status: Acute (3) SHALONDA (acute kidney injury): Status: Acute (4) Acidosis, lactic: Status: Acute (5) Pneumonia: Status: Acute (6) Influenza A: Status: Acute (7) Hypomagnesemia: Status: Acute (8) Type 2 diabetes mellitus: Status: Chronic (9) DVT prophylaxis: Status: Acute Discharge Plan Disposition Patient Disposition: Transfer-Acute Inpatient Care Specific Acute Inpt Facility: [facility] Condition: Serious Discharge Details Reason For Visit: septic shock,pneumonia, influenza A, Enteritis Admit Date/Time: 04/27/24 21:42 Admit Provider: Tristian Ritter Attending Provider: Tristian Ritter Primary Care Provider: FATMATA OBREGON Hospital Course Hospital Course: 73 male with h/o DM admitted in the evening of 04/27 with severe lactic acidosis and septic shock associated with pneumonia in setting of recent influenza. He had been seen in the ED 04/25 with 1 week of respiratory symptoms, at that point he was not hypoxic, creatinine was 1.1, was discharged home. Started on Vanco and Cefepime (after initial dose Zosyn) along with Tamiflu. There was concern for staph pneumonia based on CT findings showing some small area of cavitation. He had been vomiting prior to admission. Patient manifested signs septic shock with hypotension and a metabolic acidosis lactate of 11.7. Blood pressure managed with IVF and Levophed infusion. Imaging showed pneumonia LLL with possible cavitation, which was felt to be the source of infection. There was initial concern that his metformin was contributing to the lactic acidosis, but this was felt less significant. He had POCUS cardiac exam in the ED after 4-5 liters of NS and LR, showed hyerdynamic cardiac function and flat IVC. He was given an additional 2 liters of LR at that point. He was given an additional liter of LR 04/28 after POCUS showed larger but collapsing IVC that dilated with leg raise. His blood pressure was maintained with MAP >65 on norepinephrine over the first 24hours. On the evening of the patient developed regular, narrow complex tachycardia up to 180. Initial impression was that this was regular, SVT. Patient given 2.5 IV Lopressor with slowing of rate to 120s, and at that point it appeared there were p waves. It later became clear he was in atrial fibrillation. He was given two doses of digoxin in an effort to control the rate without dropping his blood pressure. Levophed discontinued, transitioned to phenylephrine. He initially maintained his pressure on the phenylephrine, but his at around 7:35am his heart rate slowly dropped and he lost his pulse and jenae blue was called. He received CPR, 2 rounds of epinephrine, 2 grams of magnesium (Mg was 1.7 that morning) and was intubated. ROSC was acheived. Pressors were changed back to norepinephrine, vasopressin added. Epinephrine then added as MAPs remained low. He seemed to respond better to the Epinephrine. He was initially aneuric with creatinine on admission of 4.2. After aggressive IV fluids he did produce some urine but remained oliguric. He had 445ml out in 24 hours on 04/28 and only 20ml in the morning of 04/29. Creatinine was 5.2 on 04/29 AM labs. He had formal echocardiogram on 04/28 in addition to the POCUS on admission 04/27. Suboptimal quality, LVEF 60-65%, poor visualization of RV, No vavlular abdnormalities. IVC normal size and collapsing >50% with inspiration. Steroids were added on admission 04/27, initially methyprednisolone 80mg TID, this was changed to hydrocortisone 100mg q 8 hr on 04/28. Respiratory-bernard patient has been maintained on BiPAP. He was quite tachypeneic and this improved with improvement of lactic acidosis. His metabolic acidosis was improving with anion gap down to 13.2 and pH to 7.23 (7.23/42/49/17/16). He was intubated during the code without complication. ABG after the code was 7.11/35/100/11/11. D5 with 150mEq bicarb was started at 500ml/hr and his ventilator rate was increased while awaiting transport to try to temporize his acidosis. His WBC was normal on admission at 5.56, and jumped up on 04/29 to 20.12. His hemoglobin dropped from 16.2 to 12.6 gradually. His platelets were newly low down from 199 to 78 on the morning of discharge. He has been getting enoxaparin. He has a history of diabetes and was on 1000mg BID metformin along with glipizide and empagliflozin prior to admission. His sugars were around 200 on 04/28 and insulin drip was started. Blood cultures showed NGTD at the time of transfer. Family including and son were present by the bed throughout the admission including before and after the CODE. Attending did discuss severity of illness and risk of during transfer, confirmed desire for aggressive care. Home Meds and New Rx's Prescriptions: No Action albuterol sulfate 90 mcg/actuation aerosol powdr breath activated 2 inh inhalation Q6H PRN Patient Comments: 01/28/23 pt reports has not used for months cyanocobalamin (vitamin B-12) 1,000 mcg tablet 1,000 mcg PO DAILY empagliflozin 25 mg tablet 25 mg PO DAILY famotidine 20 mg tablet 20 mg PO BID metformin 1,000 mg tablet 1,000 mg PO BID clotrimazole 1 % cream 1 applic topical BID sildenafil 50 mg tablet 50 mg PO DAILY PRN Rx Instructions: administer 30 minutes to 4 hours before activity glipizide 10 mg Tablet 10 mg PO DAILY atorvastatin 40 mg Tablet 40 mg PO DAILY atenolol 25 mg Tablet 25 mg PO DAILY epinephrine [EpiPen] 0.3 mg/0.3 mL Auto-Injector lisinopril 40 mg Tablet 40 mg PO DAILY cholecalciferol (vitamin D3) 1,000 unit Capsule 1,000 unit PO DAILY omega [id number]-fish oil [Fish Oil] 1,000 mg (120 mg-180 mg) Capsule 1 cap PO DAILY promethazine-DM 6.25-15 mg/5 mL syrup 5 ml PO Q6H PRNQty: 118 0RF cetirizine 10 mg tablet 10 mg PO DAILY PRNQty: 7 0RF benzonatate 100 mg capsule 100 mg PO BID PRNQty: 7 0RF fluticasone propionate [Flonase Allergy Relief] 50 mcg/actuation spray,suspension 1 spray intranasal DAILY Qty: 16 0RF Rx Instructions: administer into each nostril Discharge Instructions Activity:: Intubated/sedated in ICU Equipment/Supplies:: No Equipment Needed Diet:: NPO Discharge Orders Discharge Orders: Discharge Order (Routine); Ordered 04/29/24 Ordered By: Werner Giron DS: Summary Time Spent with Patient providing and/or coordinating discharge services: Greater than 30 minutes Status at Discharge Functional status at discharge: bed bound Overall status at discharge: patient is not back to baseline Mental Status: other (intubated and sedated) Speech and Movement: other (intubated and sedated) Mood: other (intubated and sedated) Affect: other (n/a) Quality:SDOH Health Related Social Needs: Health related social needs housing instability, housed, with risk of homelessness (Z59.811), education (Z55.6) Exam Narrative Exam Narrative: General: intubated and sedated Lungs: Decreased aeration left more than right lung vazquez but lung sounds audible bilaterally, no rales Heart: Distant heart sounds with tachycardic rate and irregular rhythm. Abdomen: soft large but not distended, no masses Genitalia/rectal: Mendez catheter is in place draining very small amounts of clear urine. Extremities: trace soft pitting edema ankles and feet, no rashes/wounds. Skin: Pale, cool and dry, mottled after code (had previously improved) Psych Mental Status: other (intubated and sedated) Speech and Movement: other (intubated and sedated) Mood: other (intubated and sedated) Affect: other (n/a) DS: Data Vitals/I&O Vitals and I&O: Vital Signs Temperature 37 C 04/28/24 15:25 Temperature Source Tympanic 04/28/24 15:25 Pulse 154 H 04/29/24 06:00 Pulse 133 H 04/29/24 07:50 Respiratory Rate 30 H 04/29/24 09:38 Respiratory Effort Labored, Incrsd Work of Breathing 04/27/24 22:59 Respiratory Depth Shallow 04/27/24 22:59 Respiratory Pattern Tachypnea 04/27/24 22:59 Blood Pressure 71/44 L 04/29/24 07:50 Blood Pressure Mean 69 04/29/24 04:01 Blood Pressure Position Supine 04/27/24 22:59 Pulse Oximetry 100 04/29/24 07:50 Respiratory End-tidal CO2 30 04/29/24 07:50 Oxygen Delivery Method Bi-pap 04/29/24 00:14 Oxygen Flow Rate 30 04/28/24 18:06 Fraction of Inspired Oxygen (FIO2) 100 04/29/24 09:38 Pain Level 4 04/28/24 04:13 Comment MD aware 04/27/24 20:13 Intake & Output 04/28/24 04/28/24 04/29/24 11:59 23:59 11:59 Intake Total 242.653 / 6142.632 3714.979 / 6142.632 2163.923 / 2163.923 Output Total 225 / 445 220 / 445 Balance 220.653 / 5697.632 3494.979 / 5697.632 2143.923 / 2143.923 Weight 113.3 kg 118.6 kg Intake: IV 2006.653 / 5722.632 3714.979 / 5722.632 2163.923 / 2163.923 Oral 420 / 420 Output: Urine 225 / 445 220 / 445 Other: Urine Color Yellow Yellow Yellow Urine Appearance Sediment Clear Cloudy Comment changed drainage bag to urometer, mendez leaking at drainage bag connection site - end of mendez at drainage bag connection cracked and cut off. New drainage bag attached. tape applied at connection site due to shorter connections. Stool Size Small Stool Characteristics Soft Data Completed and Pending Labs on day of discharge: Labs from last 24 hours 04/29/24 04/29/24 04/29/24 09:15 05:40 05:40 WBC 20.12 H RBC 3.99 L Hgb 12.6 L Hct 36.9 L MCV 93 MCH 31.6 MCHC 34.1 RDW 13.4 Plt Count 78 L MPV 9.8 ABG Sample Site Left Femoral ABG pH 7.11 L* ABG pCO2 35 ABG pO2 100 ABG HCO3 11 L ABG Total CO2 11 L ABG O2 Saturation 97 ABG Base Excess -19 L VBG pH VBG pCO2 VBG pO2 VBG HCO3 VBG Total CO2 VBG O2 Saturation VBG Base Excess VBG Lactate Oxygen Liter Flow 100% 450 V0LUME FiO2 INTUBATED Sodium 140 Potassium Cancelled 4.2 Chloride 108 H Carbon Dioxide 18.8 L Anion Gap 13.2 H BUN 63 H Creatinine 5.2 H* Est GFR (CKD-EPI 2020) 10.99 Glucose 94 Calcium 6.8 L Magnesium 1.7 L Total Bilirubin 0.56 AST 56 H ALT 22 Alkaline Phosphatase 47 Total Protein 4.4 L Albumin 1.2 L Stool Campylobacter PCR Stool Salmonella PCR Stool Shigella PCR Random Vancomycin 17.0 Shiga Toxin (PCR) 04/29/24 04/29/24 04/29/24 05:24 02:57 02:00 WBC RBC Hgb Hct MCV MCH MCHC RDW Plt Count MPV ABG Sample Site ABG pH ABG pCO2 ABG pO2 ABG HCO3 ABG Total CO2 ABG O2 Saturation ABG Base Excess VBG pH 7.23 L 7.23 L VBG pCO2 42 40 L VBG pO2 49 48 VBG HCO3 17 L 17 L VBG Total CO2 16 L 16 L VBG O2 Saturation 83 82 VBG Base Excess -10 L -11 L VBG Lactate Oxygen Liter Flow FiO2 Sodium Potassium Chloride Carbon Dioxide Anion Gap BUN Creatinine Est GFR (CKD-EPI 2020) Glucose Calcium Magnesium Cancelled Total Bilirubin AST ALT Alkaline Phosphatase Total Protein Albumin Stool Campylobacter PCR Stool Salmonella PCR Stool Shigella PCR Random Vancomycin Shiga Toxin (PCR) 04/29/24 04/29/24 04/28/24 01:00 00:00 23:02 WBC RBC Hgb Hct MCV MCH MCHC RDW Plt Count MPV ABG Sample Site ABG pH ABG pCO2 ABG pO2 ABG HCO3 ABG Total CO2 ABG O2 Saturation ABG Base Excess VBG pH 7.19 L 7.19 L 7.18 L* VBG pCO2 44 44 43 VBG pO2 48 45 47 VBG HCO3 17 L 17 L 16 L VBG Total CO2 16 L 16 L 15 L VBG O2 Saturation 80 77 78 VBG Base Excess -11 L -11 L -12 L VBG Lactate Oxygen Liter Flow FiO2 Sodium Potassium Chloride Carbon Dioxide Anion Gap BUN Creatinine Est GFR (CKD-EPI 2020) Glucose Calcium Magnesium Total Bilirubin AST ALT Alkaline Phosphatase Total Protein Albumin Stool Campylobacter PCR Stool Salmonella PCR Stool Shigella PCR Random Vancomycin Shiga Toxin (PCR) 04/28/24 04/28/24 04/28/24 18:25 14:00 10:48 WBC RBC Hgb Hct MCV MCH MCHC RDW Plt Count MPV ABG Sample Site ABG pH ABG pCO2 ABG pO2 ABG HCO3 ABG Total CO2 ABG O2 Saturation ABG Base Excess VBG pH 7.19 L 7.20 L VBG pCO2 41 35 L VBG pO2 48 45 VBG HCO3 16 L 14 L VBG Total CO2 15 L 13 L VBG O2 Saturation 80 79 VBG Base Excess -12 L -14 L VBG Lactate 3.6 H* 4.9 H* Oxygen Liter Flow FiO2 Sodium 139 138 Potassium 4.4 4.6 Chloride 106 106 Carbon Dioxide 18.8 L 15.6 L Anion Gap 14.2 H 16.4 H BUN 62 H 60 H Creatinine 4.9 H* 4.9 H* Est GFR (CKD-EPI 2020) 11.80 11.80 Glucose 248 H 261 H Calcium 7.1 L 7.4 L Magnesium Total Bilirubin AST ALT Alkaline Phosphatase Total Protein Albumin Stool Campylobacter PCR Stool Salmonella PCR Stool Shigella PCR Random Vancomycin 12.7 Shiga Toxin (PCR) 04/27/24 21:30 WBC RBC Hgb Hct MCV MCH MCHC RDW Plt Count MPV ABG Sample Site ABG pH ABG pCO2 ABG pO2 ABG HCO3 ABG Total CO2 ABG O2 Saturation ABG Base Excess VBG pH VBG pCO2 VBG pO2 VBG HCO3 VBG Total CO2 VBG O2 Saturation VBG Base Excess VBG Lactate Oxygen Liter Flow FiO2 Sodium Potassium Chloride Carbon Dioxide Anion Gap BUN Creatinine Est GFR (CKD-EPI 2020) Glucose Calcium Magnesium Total Bilirubin AST ALT Alkaline Phosphatase Total Protein Albumin Stool Campylobacter PCR Negative Stool Salmonella PCR Negative Stool Shigella PCR Negative Random Vancomycin Shiga Toxin (PCR) Negative Preliminary micro results at discharge 04/27/24 15:30 Blood Culture - Preliminary Blood NO GROWTH 24 HOURS 04/27/24 13:49 Blood Culture - Preliminary Blood NO GROWTH 24 HOURS PFSH All Active Problems (Updated 04/28/24 @ 12:07 by Werner Giron) Acute hypoxic respiratory failure (Acute) DVT prophylaxis (Acute) Hypovolemia (Acute) Septic shock (Acute) Hypomagnesemia (Acute) Type 2 diabetes mellitus (Chronic) Hyperlipidemia (Chronic) Septic shock due to undetermined organism (Acute) Pneumonia (Acute) Acidosis, lactic (Acute) SHALONDA (acute kidney injury) (Acute) Influenza A (Acute) Tubular adenoma of colon (Acute ~01/28/23) X4 Plantar fasciitis (Acute) Thumb pain (Acute) Arthritis of carpometacarpal (CMC) joint of right thumb (Acute) Asthma (Chronic) Erectile dysfunction (Acute) Subjective tinnitus (Acute) Asymmetrical sensorineural hearing loss (Acute) Chronic neck pain (Acute) GERD (gastroesophageal reflux disease) (Chronic) Medical History History of fracture of right hip Hx of hyperlipidemia HTN (hypertension) Diabetes Surgical History History of colonoscopy (~01/2023) path sent--3 year History of testicular surgery History of fusion of cervical spine Social History Smoking/Tobacco Use Status: Never Smoking risk assessment performed?: Yes Alcohol Intake: current Alcohol Intake frequency: a few times a month Drug use: Occasionally Substance use type: marijuana Household members: spouse Housing: house current occupation: computers What is your relationship status?: Panel score (0-1 are the most socially isolated patients): 1 Do you feel safe at home: Yes Do you feel safe in your relationship?: Yes Time Spent with Patient Time Spent with Patient: >85 minutes Time was spent: preparing to see the patient(eg.review tests), obtaining and/or reviewing separately otained hiistory, ordering medications,tests, procedures, referring, communicating with other health caregivers homecare, indepentently interpreting results, counseling the patient and care coordination
[2024-04-29] MEDS: Norepinephrine in D5W 8 MG/250 ML BAG 112.5 MG IV ×3 (10:23→11:10)
[2024-04-29 10:30] LABS: BE -16 mmol/L (-2-3); HCO3 13 mmol/L (22-26); pCO2 36 mmHg (35-45); pO2 90 mmHg (80-105); sO2 97 % (95-98); tCO2 12 mmol/L (23-27)
[2024-04-29 10:32] LABS: FIO2 100% %; Site Left Femoral; pH 7.17 (7.35-7.45)
[2024-04-29] MEDS: PROPOFOL 1,000 MG/100 ML BTL 3.558 MG IV (11:14)
[2024-04-29] MEDS: DEXTROSE 5%-LACTATED RINGERS 1,000 ML 150 ML IV (11:17)
[2024-04-29 12:24] LABS: ALT 31 U/L (16-63); AST 91 U/L (15-37); Alkaline Phosphatase 66 U/L (46-116); Anion Gap 13.4 mmol/L (3-11); BUN 63 mg/dL (7-18); Bilirubin, Total 0.59 mg/dL (0.2-1.0); CO2 16.6 mmol/L (21.0-32.0); Calcium 6.6 mg/dL (8.5-10.1); Chloride 107 mmol/L (98-107); Estimated GFR 10.27 (mL/min/1.73m2); Glucose 258 mg/dL (74-106); Potassium 4.2 mmol/L (3.5-5.1); Sodium 137 mmol/L (136-145); Total Protein 3.9 g/dL (6.4-8.2)
[2024-04-29 12:27] LABS: CREATININE 5.5 mg/dL (0.70-1.30)
--- NOTE | 2024-04-29 13:23 | CMDISCH_ITS ---
Date of service: 04/29/24 Time of Service: 13:23 LACE Index Scoring Tool Questions: Length of Stay (in days): 2 Was the patient admitted via the E.D.?: Yes Comorbidities: Diabetes w/o Complication and Liver or Renal Disease E.D. Visits: 2 Answers: Total Score: 12 Risk of Readmission: High Risk Care Management Discharge Plan Reason for Hospitalization: septic shock Discharge Plan: Reddy is being transferred to [facility]. He will transport via EMS ([facility]) and will be followed by [facility] providers and plan of care. Services Needed at Discharge: Transportation SDOH Health Related Social Needs: Health related social needs education (Z55.6)
[2024-04-29] MEDS: Sodium Bicarbonate 50 MEQ/50 ML SYR IVP (13:45)
--- NOTE | 2024-04-29 15:25 | NUR.NOTE ---
Addendum entered by José Miguel Mena 04/29/24 16:55: [id number]: Approx 1 hour to complete preparation of pt for departure. Results from final blood draw reported to [facility] team via phone per [facility] request. [facility] team left with pt aprrox 1200. Original Note: 07:15; Received report from oncoming shift upon walking in pt's room, noticed extreme hypotension, tachycardia, and mottled skin, called to ICU unit. 07:38; Code Blue called. CPR started 07:40; BP 79/22, HR 159, PEA. 1 mg of epinephrine IVP administered. CPR continued. 07:44; 7.5 ET tube placed by Tej Caro CRNA. Pt ventilated via BVM by RT 07:45; Pulse check, no pulse. 1 mg of epinephrine IVP administered. 07:48: Pulse check. ROSC. Compressions stopped. Norepinephrine drip initiated and 2 gram Mag initiated. HR 154 BP 104/25 Short run of Vtach approx 8 beats 07:50; HR 144 BP 154/69 07:55; Blood glucose 129. BP 124/55. Difficulty getting CO2 reading. 08:00; HR 154. BP 83/56. CO2 52. Norepi titrated to 15. Vasopressin ordered. 08:05; Pt placed on ventilator by RT Brooklynn Deutsch. Vent settings: Rate 16 TV:450 FIO2:100%. BP 87/51 HR 127 CO2 36. 08:10; Norepi titrated up to 20 08:13; BP 103/91 Tej Caro CRNA attempting to place right femoral line. Attempt failed. 08:19; BP 71/44 Norepi titrated up to 30 HR 138 CO2 30 08:23; BP 56/39. 1 unit Vasopressin bolus given Tej Caro CRNA. Vasopressin initiated at 0.04 units/min 08:25; BP 63/46 Vasopressin drip increased to 0.08. Norepi increased to 40. 08:30; BP 71/37 HR 126 CO2 30 Norepi increased to 50. 08:35; BP 55/36 Norepi increased to 60 08:40; BP 73/36 08:45 BP 80/52. Left femoral arterial line placed by Tej Caro CRNA. 08:47: Epi drip initiated at 10 mcg/min. BP 99/81 HR 188 08:51: BP 70/42, BP readings from this point onwards are taken from arterial line. Previous readings are from manual cuff. Family reentered room 08:54; Epi titrated up to 12 mcg/min 08:56; BP 76/40 0900: BP 74/42 0910: ABG drawn from arterial line. 0920: BP 89/35 0925: BP 92/35. Transport secured for pt to [facility] ETA approx 10:30. ABG results PH 7.11 Pco2 35 Po2 100 Hco3 11 Total C02 11 02 SAT 97 Base Excess -19 0935: BP 94/36 0945: Sodium bicarb infusion initiated at 500mL/hr. BP 94/36 0955: Bp 98/40. Pt bladder scan approx 30 cc 1000: BP 94/40 hr 155 1005: Blood sugar FS 115 1015: BP 97/40 New ABG drawn. 1020: New bag of epi hung, rate of 12 mcg/min. BP 99/41 1025: BP 99/40. New bag or norepi hung at the rate of 60 mcg/min 1030: BP 102/42 1043: [facility] transport arrived. Report given to transport team. Pt transferred from ICU monitoring equipment to [facility] equipment. infusing IVs and rates at time of transfer: Vasopressin 0.08 unit/min, Norepi 60 mcg/min, Epi 12 mcg/min, Sodium Bicarb 500 mL/hr, Insulin gtt 4.5 units, D5LR 150 mL/hr. [place] in place with 20cc of urine in drainage bag. Pt transferred from [facility] vent to [facility] vent. See Vent documentation screen for vent settings.
== END 2024-04-29 12:00 | disposition short-term general hospital (02) | DRG 871 ==
LOC: ER 21:33 → ICU 22:56
PROVIDERS: Emergency Medicine; General Practice; Admitting Provider Family Medicine; Emergency Provider Emergency Medicine Emergency Medical Services; PCP Nurse Practitioner Acute Care; Responsible Provider Family Medicine; Visit Provider Family Medicine
DX: A41.9 Sepsis, unspecified organism (principal); J10.00 Influenza due to other identified influenza virus with unspecified type of pneumonia; R65.21 Severe sepsis with septic shock; J96.01 Acute respiratory failure with hypoxia; N17.9 Acute kidney failure, unspecified; E87.20 Acidosis, unspecified; E87.21 Acute metabolic acidosis; E83.42 Hypomagnesemia; E11.9 Type 2 diabetes mellitus without complications; I10 Essential (primary) hypertension; E78.2 Mixed hyperlipidemia; Z79.84 Long term (current) use of oral hypoglycemic drugs; Z79.899 Other long term (current) drug therapy; J45.909 Unspecified asthma, uncomplicated; G89.29 Other chronic pain; K21.9 Gastro-esophageal reflux disease without esophagitis; F12.90 Cannabis use, unspecified, uncomplicated; I48.91 Unspecified atrial fibrillation
CPT/HCPCS: 31500; 36620; 00123; 36410; 36415; 36416; 36556; 36592; 51702; 71250; 76604; 76705; 76775; 76937; 76942; 80048; 80053; 82805; 82962; 83690; 84145; 85027; 87040; 87493; 87505; 87637; 93005; 93308; 94640; 94761; 96361; 96365; 96366; 96367; 96375; 99285; 99291; 36600; 71045; 74176; 80202; 81003; 81015; 83605; 83735; 83880; 84100; 84132; 84439; 84443; 84484; 85025; 93010; 93306; 94002; 94660; 99223; 99233; 99239; 99292; J0131; J0171; J0692; J0780; J1160; J1650; J1720; J1815; J2004; J2270; J2371; J2543; J2598; J2704; J2919; J3370; J3475; J7060; J7620